=== PATIENT | female | born 1995 | race Caucasian/White ===

== ENCOUNTER 2016-03-19 14:13 | Emergency (ER) | payer OTHER ==
[2016-03-19 16:13] VITALS: BP 135/68
--- NOTE | 2016-03-19 16:51 | UC ---
Respiratory Complaint HPI - HPI Summary HPI Summary: cough for a week. For past 2d, feels worse with terrible ST, fever, body aches. No flu shot. Still with hacking cough, productive of yellowish phlegm - History of Current Complaint Chief Complaint: UCRespiratory Stated Complaint: FEVER,THROAT Time Seen by Provider: 03/19/16 16:42 Hx Obtained From: Patient Hx Last Menstrual Period: 03/18/16 Onset/Duration: Gradual Onset, Lasting Weeks - 1 Timing: Constant Severity Initially: Mild Severity Currently: Moderate Character: Sputum Description: - yellow Aggravating Factors: Recumbent Position Alleviating Factors: Nothing Associated Signs And Symptoms: Positive: Dyspnea, Fever, Chills, URI, Nasal Congestion, Hoarseness. Negative: Hemoptysis - Risk Factors Pulmonary Embolism Risk Factors: Negative Cardiac Risk Factors: Negative Pseudomonas Risk Factors: Negative Tuberculosis Risk Factors: Negative - Allergies/Home Medications Allergies/Adverse Reactions: Allergies Allergy/AdvReac Type Severity Reaction Status Date / Time Penicillins Allergy Intermediate Hives Verified 03/19/16 16:13 Home Medications: Home Medications Hydrocodone Polistirex-Chlorph [Tussionex Pennkinetic Ext 10-8 mg/5Ml] 2 teasp PO PRN 03/19/16 [History] PMH/Surg Hx/FS Hx/Imm Hx Endocrine History Of: Denies: Diabetes Cardiovascular History Of: Denies: Hypertension, Pacemaker/ICD Respiratory History Of: Reports: Asthma - "related to exercise" GI/ History Of: Denies: Renal Disease Neurological History Of: Reports: Migraine - gets GIBBS's w/ dizziness - had a head scan 2014 (normal per pt) Psychological History Of: Denies: Anxiety, Depression Other History Of: Negative For: Anticoagulant Therapy - Surgical History Surgical History: Yes Surgery Procedure, Year, and Place: tubes in ears - Family History Known Family History: Positive: Cardiac Disease, Diabetes - Social History Occupation: Student Lives: With Family Alcohol Use: Occasionally Substance Use Type: None Smoking Status (MU): Never Smoked Tobacco Review of Systems Constitutional: Fever, Chills, Fatigue Skin: Negative Eyes: Negative ENT: Sore Throat, Ear Ache, Nasal Discharge Respiratory: Cough Cardiovascular: Negative Gastrointestinal: Negative Genitourinary: Negative Motor: Negative Neurovascular: Negative Musculoskeletal: Myalgia Neurological: Headache Psychological: Negative All Other Systems Reviewed And Are Negative: Yes Physical Exam Triage Information Reviewed: Yes Appearance: Well-Appearing, No Pain Distress, Well-Nourished Vital Signs: Initial Vital Signs Temp 99.6 F 03/19/16 16:05 Pulse 91 03/19/16 16:05 Resp 16 03/19/16 16:05 BP 135/68 03/19/16 16:05 Pulse Ox 100 03/19/16 16:05 Vital Signs Reviewed: Yes Eye Exam: Normal ENT: Positive: Normal ENT inspection, Pharyngeal erythema, Nasal congestion, Nasal drainage, TM bulging, TM dull, TM red - left side, Muffled/hoarse voice - hoarse. Negative: Tonsillar swelling, Tonsillar exudate, Trismus Neck exam: Normal Neck: Positive: Supple Respiratory Exam: Normal Respiratory: Positive: Lungs clear, Normal breath sounds, No respiratory distress, No accessory muscle use Cardiovascular Exam: Normal Musculoskeletal Exam: Normal Neurological Exam: Normal Psychological Exam: Normal Skin Exam: Normal UC Diagnostic Evaluation - Laboratory O2 Sat by Pulse Oximetry: 100 Diagnostic Studies Comment: Strep neg Respiratory Course/Dx - Differential Dx/Diagnosis Differential Diagnosis/HQI/PQRI: Bronchitis, Lower Resp Infection, Sinusitis Provider Diagnoses: left OM; URI Discharge - Discharge Plan Condition: Stable Disposition: HOME Prescriptions: Azithromycin TAB* [Zithromax TAB (Z-CHRISTAL) 250 mg #6 tabs] 2 tab PO .TODAY, THEN 1 DAILY #1 christal Benzonatate CAP* [Tessalon CAP*] 100 mg PO TID PRN #30 cap PRN Reason: Cough Patient Education Materials: Otitis Media (ED), Upper Respiratory Infection (ED ) Referrals: Kailyn Khoury MD [Primary Care Provider] -
== END 2016-03-19 17:25 | disposition home or self-care (01) ==
LOC: UCCORT 14:13
DX: H66.92 Otitis media, unspecified, left ear (principal); J06.9 Acute upper respiratory infection, unspecified; Z88.0 Allergy status to penicillin
CPT/HCPCS: 87651; 99212; G0463

== ENCOUNTER 2017-01-08 19:56 | Emergency (ER) | payer OTHER ==
[2017-01-08 20:07] VITALS: BP 129/73
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
== END 2017-01-08 20:45 | disposition home or self-care (01) ==
LOC: UCEAST 19:56
DX: R14.0 Abdominal distension (gaseous) (principal); R68.84 Jaw pain; R20.2 Paresthesia of skin; R11.0 Nausea
CPT/HCPCS: 99212; G0463

== ENCOUNTER 2017-01-08 21:07 | Emergency (ER) | payer OTHER ==
--- NOTE | 2017-01-09 01:21 | ED ---
August Prince Alfonso, scribed for Ronal More MD on 01/09/17 at 0026 . Abdominal Pain/Female - HPI Summary HPI Summary: This patient is a 21 year old F presenting [place] [facility] [place] [facility] accompanied by step mother and sister with a chief complaint of abdominal bloating since 5 days ago. The patient rates the pain 4/10 in severity. Symptoms aggravated by nothing. Symptoms alleviated by nothing. Patient reports fatigue, diaphoresis, insomnia, bilateral LE shooting pains (worse on right), chest pressure, and SOB. Patient denies N/V, and urinary symptoms. She is s/p a recent right-sided dental procedure. She had a BM today. She denies recent sick contacts. - History of Current Complaint Chief Complaint: EDGeneral Stated Complaint: TENDER/BLOATED SENT FROM Hx Obtained From: Patient Hx Last Menstrual Period: 12/28/16 Onset/Duration: Gradual Onset, Lasting Days - 5, Still Present Timing: Constant Severity Currently: Moderate Pain Intensity: 4 Pain Scale Used: 0-10 Numeric Character: Other: - bloating Aggravating Factor(s): Nothing Alleviating Factor(s): Nothing Associated Signs and Symptoms: Positive: Other: - fatigue, diaphoresis, insomnia , bilateral LE shooting pains (worse on right), chest pressure, and SOB. Patient denies N/V, urinary symptoms Allergies/Adverse Reactions: Allergies Allergy/AdvReac Type Severity Reaction Status Date / Time Penicillins Allergy Intermediate Hives Verified 03/19/16 16:13 PMH/Surg Hx/FS Hx/Imm Hx Endocrine/Hematology History: Denies: Hx Anticoagulant Therapy, Hx Blood Disorders, Hx Diabetes Cardiovascular History: Denies: Hx Hypertension, Hx Pacemaker/ICD Respiratory History: Reports: Hx Asthma - "related to exercise" GI History: Reports: Hx Gastroesophageal Reflux Disease History: Denies: Hx Renal Disease Musculoskeletal History: Denies: Hx Rheumatoid Arthritis, Hx Osteoporosis Sensory History: Denies: Hx Contacts or Glasses, Hx Hearing Aid Opthamlomology History: Denies: Hx Contacts or Glasses EENT History: Denies: Hx Deafness Neurological History: Reports: Hx Migraine - gets GIBBS's w/ dizziness - had a head scan 2014 (normal per pt) Psychiatric History: Denies: Hx Anxiety, Hx Depression, Hx Panic Disorder - Surgical History Surgery Procedure, Year, and Place: wisdom teeth extraction. tubes in ears - Immunization History Immunizations Up to Date: Yes Infectious Disease History: No Infectious Disease History: Denies: Traveled Outside the [place] in Last 30 Days - Family History Known Family History: Positive: Cardiac Disease, Diabetes - Social History Alcohol Use: Occasionally Hx Substance Use: No Substance Use Type: Reports: None Hx Tobacco Use: No Smoking Status (MU): Never Smoked Tobacco Review of Systems Positive: Fatigue, Skin Diaphoresis Positive: Chest Pain Positive: Shortness Of Breath Positive: Other - Abd bloating. Negative: Vomiting, Nausea Positive: no symptoms reported Neurological: Other - Insomnia, bilateral LE shooting pains (worse on right) All Other Systems Reviewed And Are Negative: Yes Physical Exam - Summary Physical Exam Summary: Appearance: Well-appearing, Well-nourished Skin: Warm Eyes: Normal ENT: Post-operative right lower gum line surgical changes. No abscess. No bleeding. Minimal tenderness to palpation. Neck: Supple, nontender Respiratory: Clear to auscultation Cardiovascular: Normal Abdomen: Soft, nontender Bowel: Present Musculoskeletal: Strength/ROM Intact Neurological: Normal, A&Ox3 Psychiatric: Normal Triage Information Reviewed: Yes Vital Signs On Initial Exam: Initial Vitals Temp Pulse Resp BP Pulse Ox 97.3 F 105 16 127/68 98 01/08/17 21:21 01/08/17 21:21 01/08/17 21:21 01/08/17 21:21 01/08/17 21:21 Vital Signs Reviewed: Yes - Ana Coma Scale Coma Scale Total: 15 Diagnostics - Vital Signs Vital Signs Temp Pulse Resp BP Pulse Ox 01/08/17 23:47 77 98 01/08/17 21:21 97.3 F 105 16 127/68 98 - Laboratory Lab Statement: Any lab studies that have been ordered have been reviewed, and results considered in the medical decision making process. Abdominal Pain Fem Course/Dx - Course Course Of Treatment: pt elects to leave AMA, does not want to wait for CT scan, I instructed patient about dangers of leaving against AMA such as seriuos intraabdominal pathology including appendicitis, and risk of permanent disability and morbidity, but patient demonstrates understnading and elects to leave AMA nonetheless. - Diagnoses Provider Diagnoses: Abdominal pain Discharge - Discharge Plan Condition: Stable Disposition: AGAINST MEDICAL ADVICE Patient Education Materials: Acute Abdominal Pain (ED) Referrals: Kailyn Khoury MD [Primary Care Provider] - Additional Instructions: 1. PLEASE MAKE AN APPOINTMENT FIRST THING IN THE MORNING TO BE SEEN BY YOUR PRIMARY CARE DOCTOR WITHIN 2-3 DAYS 2. PLEASE RETURN IMMEDIATELY TO THE ER IF YOU HAVE ANY WORSENING OR CONCERNING SYMPTOMS The documentation as recorded by the August lovelace Alfonso accurately reflects the service I personally performed and the decisions made by me, oRnal More MD.
[2017-01-09 01:22] LABS: Hematocrit 40 % (35-47); Hemoglobin 13.4 g/dl (12.0-16.0); Mean Corpuscular HGB Conc 34 g/dl (31-36); Mean Corpuscular Hemoglobin 31 pg (27-31); Mean Corpuscular Volume 91 fL (80-97); Mean Platelet Volume 8 um3 (7.4-10.4); Red Blood Count 4.38 10^6/ul (4.0-5.4); Red Cell Distribution Width 13 % (10.5-15); White Blood Count 19.5 10^3/ul (3.5-10.8)
[2017-01-09 01:23] VITALS: BP 111/63
[2017-01-09 01:26] LABS: Add Diff/Slide Review? Slide Review Added; Comments Flag Yes
[2017-01-09 01:36] LABS: ALT 17 U/L (7-52); AST 13 U/L (13-39); Albumin 3.7 g/dL (3.2-5.2); Alkaline Phosphatase 39 U/L (34-104); Anion Gap 5 mmol/L (2-11); BUN/Creatinine Ratio 38.2 (8-20); Blood Urea Nitrogen 26 mg/dL (6-24); C Reactive Protein < 1.00 mg/L (< 5.00); CO2 Carbon Dioxide 30 mmol/L (22-32); Calcium 8.6 mg/dL (8.6-10.3); Chloride 98 mmol/L (101-111); EGFR African American 137.9 (>60); EGFR Non-African American 107.2 (>60); Globulin 2.5 g/dL (2-4); Glucose 89 mg/dL (70-100); Lipase 79 U/L (11.0-82.0); Potassium 4.5 mmol/L (3.5-5.0); Sodium 133 mmol/L (133-145); Total Protein 6.2 g/dL (6.4-8.9)
== END 2017-01-09 01:25 | disposition left against medical advice (07) ==
LOC: ED 21:07
DX: R10.9 Unspecified abdominal pain (principal); R53.83 Other fatigue; G47.00 Insomnia, unspecified; R07.9 Chest pain, unspecified
CPT/HCPCS: 36415; 80053; 83690; 84702; 85025; 85730; 86140; 99283

== ENCOUNTER 2017-04-08 12:01 | Emergency (ER) | payer SELFPAY ==
[2017-04-08 14:27] VITALS: BP 129/75
[2017-04-08] MEDS ORDERED: Tetan/Diph/Pertus SYR(Tdap)* 0.5 ML SYR(BOOSTRIX) use SYR IM ONE (14:48)
--- NOTE | 2017-04-08 14:55 | UC ---
Skin Complaint HPI - HPI Summary HPI Summary: 21 yo WF p/w right heel puncture wound at 11:20 AM while doing work at school. Last Tdap was 2006 and is here for her tdap shot. Foot is not swollen , but painful to touch - History of Current Complaint Chief Complaint: UCLowerExtremity Time Seen by Provider: 04/08/17 14:35 Stated Complaint: PUNCTURE WOUND Hx Obtained From: Patient Hx Last Menstrual Period: 03/21/17 Onset/Duration: Sudden Onset Skin Exposure Onset/Duration: Hours Ago Onset Severity: Mild Pain Intensity: 2 - Allergy/Home Medications Allergies/Adverse Reactions: Allergies Allergy/AdvReac Type Severity Reaction Status Date / Time Penicillins Allergy Hives Verified 04/08/17 12:19 Home Medications: Home Medications Bcp 1 tab PO DAILY 04/08/17 [History] Review of Systems Constitutional: Negative Skin: Other - SEE HPI Eyes: Negative ENT: Negative Respiratory: Negative Cardiovascular: Negative Gastrointestinal: Negative Genitourinary: Negative Motor: Negative Neurovascular: Negative Musculoskeletal: Negative Neurological: Negative Psychological: Negative Is Patient Immunocompromised?: No All Other Systems Reviewed And Are Negative: Yes PMH/Surg Hx/FS Hx/Imm Hx Other History Of: Negative For: Anticoagulant Therapy - Surgical History Surgical History: Yes Surgery Procedure, Year, and Place: wisdom teeth extraction. tubes in ears - Family History Known Family History: Positive: Cardiac Disease, Diabetes - Social History Alcohol Use: Occasionally Substance Use Type: None Smoking Status (MU): Never Smoked Tobacco Physical Exam Triage Information Reviewed: Yes Appearance: Well-Appearing Vital Signs: Initial Vital Signs Temp 36.6 C 04/08/17 12:19 Pulse 78 04/08/17 12:19 Resp 16 04/08/17 12:19 BP 106/65 04/08/17 12:19 Pulse Ox 100 04/08/17 12:19 Eye Exam: Normal ENT Exam: Normal Dental Exam: Normal Neck exam: Normal Neck: Positive: 1 Respiratory Exam: Normal Cardiovascular Exam: Normal Abdominal Exam: Normal Musculoskeletal Exam: Normal Neurological Exam: Normal Psychological Exam: Normal Skin: Positive: Other - small puncture wound seen on right mid heel plantar surface near the arch, no swelling, warmth or d/c Course/Dx - Course Course Of Treatment: wound cleaned, Tdap administered, monitor for wound infection, no need for abx at this time - Diagnoses Provider Diagnoses: Puncture wound. Tdap booster Discharge - Discharge Plan Condition: Stable Disposition: HOME Patient Education Materials: Puncture Wound (ED) Referrals: Kailyn Khoury MD [Primary Care Provider] - Additional Instructions: activity as tolerated
== END 2017-04-08 15:15 | disposition home or self-care (01) ==
LOC: UCEAST 12:01
DX: S91.311A Laceration without foreign body, right foot, initial encounter (principal); X58.XXXA Exposure to other specified factors, initial encounter; Y92.219 Unspecified school as the place of occurrence of the external cause
CPT/HCPCS: 90715; 96372; 99211; G0463

== ENCOUNTER 2018-06-25 14:48 | Emergency (ER) | payer OTHER ==
--- OUTSIDE RECORDS SUMMARY | 2018-06-25 15:00 | XMS REPORT | Continuity of Care Document ---
:1995 External Reference #:[id number] Author Name Jadiel Iniguez M.D. Address [address] [facility] [address] [place] [address] Care Team Providers Name Role Phone Jadiel Iniguez MD Care Team Information Prop Making Supervisor Unavailable Jadiel Iniguez MD Primary Care Physician Unavailable Payers Date Identification Numbers Payment Provider Subscriber Effective: 2010 Policy Number: [id number] [facility] Nelida Aminata PayID: [id number] [address] [place] [address] Effective: 2004 Policy Number: [id number] [facility] Nelida Mendosa Expires: 2010 Group Number: [id number] [address] PayID: [id number] [place] [address] Effective: 2003 Policy Number: Medicaid/[facility] Systems Vidal Ruby Aminata [id number] Expires: 2004 PayID: [id number] [address] [place] [address] Expires: 2002 Policy Number: [id number] CHESTER Coates PayID: [id number] [address] [address] [place] [address] Effective: 2002 Policy Number: [id number] [employer] - Ruben Coates Expires: 2003 Group Name: [employer]en [employer] [id number] [facility] PayID: [id number] [place] [address] Effective: 2003 Policy Number: [id number] [employer] Vidal Coates Expires: 2003 Group Name: [employer] [address] [address] Advance Directives Description No Information Available Problems Active Problems Provider Date Oral contraceptive prescribed Chalino Mora CIRCULATION MANAGER Onset: 05/10/2011 Contraception care education Chalino Mora CIRCULATION MANAGER Onset: 05/10/2011 Herpes zoster without complication Jadiel Iniguez M.D. Onset: 05/10/2011 Allergic rhinitis Jadiel Iniguez M.D. Onset: 05/10/2011 Inactive Problems Disorder of menstruation Jadiel Iniguez M.D. Onset: 05/10/2011 Inactive: 12/14/2013 Family History Date Family Member(s) Observation Comments Father Healthy Father 37 Mother Healthy Mother 36 Children None Siblings 4 Social History Type Date Description Comments Sex Unknown Marital Status Legal Status: Never ETOH Use Rarely consumes alcohol Tobacco Use Start: Unknown Patient has never smoked Allergies, Adverse Reactions, Alerts Active Allergies Reaction Severity Comments Date Penicillin 06/15/2011 Medications Active Medications SIG Qnty Indications Ordering Provider Date Celexa 1 by mouth 90tabs F33.9 Jadiel Iniguez, 04/10/2018 20mg Tablets every day M.D. F41.9 Crestor take one tablet by 90tabs E78.2 Jadiel Iniguez, 03/15/2018 10mg Tablets mouth at bedtime M.D. Vitamin D3 1 by mouth every 90caps E55.9 Jadiel Iniguez, 03/15/2018 1000Unit day M.D. Capsules Claritin 1 by mouth every 30tabs J30.9 Jadiel Iniguez, 03/01/2018 10mg Tablets day M.D. Singulair 1 tab by mouth at 30tabs J45.909 Jadiel Iniguez, 03/01/2018 10mg Tablets bedtime M.D. Omeprazole 1 by mouth every 30caps K21.9 Jadiel Iniguez, 03/01/2018 20mg Capsules day M.D. DR Dang HFA 2 puffs qid prn 2Mdi J45.909 [facility] frannelson ReneJennifer, 11/10/2012 108(90Base) M.Graeme mcg/Act Aerosol Take 1 Tablet By Unknown Mouth Every Day 1.5-30mg-mcg Tablets History Medications Azithromycin 1 tab by mouth 10tabs J18.0 [facility] 03/01/2018 - 500mg every day x 10 MRadha Rodriguez 03/14/2018 Tablets days Levonorgestrel And Take 1 tablet by 91tabs v25.9 [facility] 12/12/2013 - Ethinyl Estradiol mouth daily at the [facility] 03/14/2018 same day 0.1-0.02&0.01mg Tablets Valacyclovir HCL Take 1 tablet by 14tabs 054.79 [facility] 09/13/2013 - 1gm mouth two times a [facility] 09/21/2013 Tablets day for 7 days Metronidazole Take 1 tablet by 14tabs 616.10 [facility] 09/13/2013 - 500mg mouth twice a day [facility] 09/21/2013 Tablets for 7 days. Take medication with food Cheratussin ac tsp 1 q 4 hrs prn 118ml 461.9 [facility] 04/11/2013 - Radha Darby 04/18/2013 100-10mg/5ML Syrup Mucinex Maximum 1 po bid 30tabs 461.9 [facility] 04/11/2013 - Strength Radha Darby 04/16/2013 1200mg Tablets ER 12HR Prednisone 2 tab by mouth 20tabs 461.9 [facility] 04/11/2013 - 20mg Tablets daily 4 days, 30 MRadha Rodriguez 04/25/2013 MGx3d,77ICg6l,10MG x7d Levofloxacin 1 po qd 10tabs 461.9 [facility] 04/11/2013 - 500mg Radha Darby 04/21/2013 Tablets Azithromycin 2 po today then 1 1Pack 461.9 [facility] 11/10/2012 - 250mg po next 4 days Radha Darby 11/15/2012 Tablets Mucinex Maximum 1 po bid 30tabs 461.9 Hira, chai 11/10/2012 - Strength Radha Darby 11/13/2012 1200mg Tablets ER 12HR Calcium 600 With Hira, [facility] 11/03/2012 - Vitamin D Radha Darby 11/03/2012 [id number]-[id number] Chewtabs Vitamin D 1 PO Qday Hira, chai 11/03/2012 - 2000Unit Radha Darby 05/22/2018 Capsules Mupirocin apply to affected 22gtube 692.9 [facility], chai 08/04/2012 - 2% Ointment areas bid Radha Darby 05/22/2013 Azithromycin take two tablets 6tabs 461.8 [facility] 07/12/2012 - 250mg by mouth as one Radha Darby 07/17/2012 Tablets dose on the first day then take one daily thereafter x 4 days Cheratussin ac tsp 1 q 4 hrs prn 100cc 786.2 [facility], chai 07/12/2012 - Radha Darby 07/17/2012 100-10mg/5ML Syrup Cipro 1 twice a day 20tabs Hira, chai 03/16/2012 - 500mg Tablets Radha Darby 03/29/2012 Cryselle-28 one po qd 1pack V25.01 [facility] 03/14/2012 - 0.3-30mg-mcg Radha Darby 02/21/2013 Tablets Cipro 1 twice a day 20tabs 789.07 H[facility], [facility] 02/29/2012 - 500mg Tablets Radha Darby 03/10/2012 Strattera 300.00 Hira, chai 06/15/2011 - 40mg Capsules Radha Darby 03/14/2012 Medications Administered in Office Medication SIG Qnty Indications Ordering Provider Date Jadiel Ford M.D. 11/19/2004 Injection Immunizations CPT Code Status Date Vaccine Lot # 24483 Given 08/14/2009 Meningococcal Conjugate Vaccine 06267 Given 08/14/2009 Prevnar 09215 Given 01/09/2009 Flu Vaccine 82484 Given 10/20/2006 TDaP 85151 Given 11/10/2004 Varicella Vaccine 71946 Given 09/17/1998 MMR 32149 Given 09/06/1998 IPV 56691 Given 07/07/1998 DTaP [facility] [id number] ML 0.50 97157 Given 04/28/1995 MMR 06877 Given 07/07/1994 Hep B To Age 16 50526 Given 01/07/1994 IPV 06490 Given 01/07/1994 DTaP [facility] [id number] ML 0.50 79703 Given 01/07/1994 Hemophilus Influenza B Vaccine 49823 Given 1993 IPV 66102 Given 1993 DTaP ND [id number] ML 0.50 19307 Given 1993 Hemophilus Influenza B Vaccine 44748 Given 1993 Hep B To Age 16 47960 Given 1993 IPV 76056 Given 1993 DTaP [facility] [id number] ML 0.50 83107 Given 1993 Hemophilus Influenza B Vaccine 54866 Given 1993 Hep B To Age 16 49178 Refused 12/12/2013 Flu Vaccine Vital Signs Date Vital Result Comment 06/15/2018 9:38am BP Systolic 116 mmHg BP Diastolic 64 mmHg Height 64 inches 5'4" Weight 197.00 lb BMI (Body Mass Index) 33.8 kg/m2 Heart Rate 87 /min Respiratory Rate 16 /min 04/24/2018 3:36pm BP Systolic 126 mmHg BP Diastolic 88 mmHg Height 64 inches 5'4" Weight 196.00 lb BMI (Body Mass Index) 33.6 kg/m2 Heart Rate 73 /min Respiratory Rate 16 /min 04/10/2018 3:55pm BP Systolic 118 mmHg BP Diastolic 72 mmHg Height 64 inches 5'4" Weight 196.00 lb BMI (Body Mass Index) 33.6 kg/m2 Heart Rate 98 /min Respiratory Rate 18 /min 03/15/2018 4:14pm BP Systolic 124 mmHg BP Diastolic 72 mmHg Height 64 inches 5'4" Weight 196.00 lb BMI (Body Mass Index) 33.6 kg/m2 Heart Rate 86 /min Respiratory Rate 16 /min 03/01/2018 10:16am BP Systolic 118 mmHg BP Diastolic 68 mmHg Height 64 inches 5'4" Weight 196.00 lb BMI (Body Mass Index) 33.6 kg/m2 Heart Rate 103 /min Respiratory Rate 16 /min 12/12/2013 2:53pm BP Systolic 127 mmHg BP Diastolic 69 mmHg Height 64 inches 5'4" Weight 167.00 lb BMI (Body Mass Index) 28.7 kg/m2 Heart Rate 83 /min Respiratory Rate 18 /min 09/13/2013 4:40pm BP Systolic 111 mmHg BP Diastolic 73 mmHg Height 64 inches 5'4" Weight 163.00 lb BMI (Body Mass Index) 28.0 kg/m2 Heart Rate 60 /min Body Temperature 97.4 F Respiratory Rate 18 /min 07/03/2013 2:12pm BP Systolic 119 mmHg BP Diastolic 73 mmHg Height 64 inches 5'4" Weight 159.00 lb BMI (Body Mass Index) 27.3 kg/m2 Heart Rate 103 /min Respiratory Rate 18 /min 06/06/2013 3:06pm BP Systolic 123 mmHg BP Diastolic 79 mmHg Height 64 inches 5'4" Weight 159.00 lb BMI (Body Mass Index) 27.3 kg/m2 Heart Rate 112 /min Body Temperature 97.6 F Respiratory Rate 18 /min 04/11/2013 11:58am BP Systolic 138 mmHg BP Diastolic 85 mmHg Height 64 inches 5'4" Weight 159.00 lb BMI (Body Mass Index) 27.3 kg/m2 Heart Rate 125 /min Body Temperature 98.8 F Respiratory Rate 20 /min 11/10/2012 4:33pm BP Systolic 112 mmHg BP Diastolic 66 mmHg Height 64 inches 5'4" Weight 161.00 lb BMI (Body Mass Index) 27.6 kg/m2 Heart Rate 97 /min Body Temperature 97.0 F Respiratory Rate 18 /min 10/31/2012 2:27pm BP Systolic 102 mmHg BP Diastolic 60 mmHg Height 64 inches 5'4" Weight 160.00 lb BMI (Body Mass Index) 27.5 kg/m2 Heart Rate 101 /min Body Temperature 97.5 F Respiratory Rate 18 /min 08/04/2012 2:07pm BP Systolic 124 mmHg BP Diastolic 70 mmHg Height 64 inches 5'4" Weight 157.00 lb BMI (Body Mass Index) 26.9 kg/m2 Heart Rate 73 /min Respiratory Rate 18 /min 07/12/2012 2:14pm BP Systolic 112 mmHg BP Diastolic 62 mmHg Height 64 inches 5'4" Weight 154.00 lb BMI (Body Mass Index) 26.4 kg/m2 Heart Rate 104 /min Body Temperature 97.4 F Respiratory Rate 18 /min 03/14/2012 2:23pm BP Systolic 102 mmHg BP Diastolic 70 mmHg Height 64 inches 5'4" Weight 152.00 lb BMI (Body Mass Index) 26.1 kg/m2 Heart Rate 76 /min Body Temperature 97.4 F Respiratory Rate 12 /min 02/29/2012 11:47am BP Systolic 116 mmHg BP Diastolic 72 mmHg Height 64 inches 5'4" Weight 153.00 lb BMI (Body Mass Index) 26.3 kg/m2 Heart Rate 108 /min Body Temperature 97.1 F Respiratory Rate 16 /min 06/15/2011 3:05pm BP Systolic 112 mmHg BP Diastolic 72 mmHg Height 64 inches 5'4" Weight 140.00 lb BMI (Body Mass Index) 24.0 kg/m2 Heart Rate 71 /min Last Menstrual Period 0 Respiratory Rate 14 /min Results Test Date Facility Test Result H/L Range Note CBC With Diff 03/01/2018 [facility] WBC 8.9 10*3/uL (4.1-11.0) [address] [facility] (607)- - RBC 4.62 10*6/uL (4.00-5.40) HGB 13.8 g/dL (12.0-16.0) HCT 40.5 % (36.0-47.0) MCV 87.5 fL (80.0-95.0) MCH 29.9 pg (27.0-32.0) MCHC 34.2 g/dL (32.0-36.0) RDW 12.0 % (10.5-14.5) PLT 349 10*3/uL (150-450) MPV 8.3 fL (7.1-10.7) Neut % 67.1 % (35.0-75.0) Lymph % 21.8 % (16.0-52.0) [place] % 9.4 % High (0.0-8.0) Eos % 0.9 % (0.0-5.0) Baso % 0.8 % (0.0-4.0) Neut # 6.0 10*3/uL (1.8-7.7) Lymph # 1.9 10*3/uL (1.2-4.8) [place] # 0.8 10*3/uL (0.0-0.8) Eos # 0.1 10*3/uL (0.0-0.5) Baso # 0.1 10*3/uL (0.0-0.2) CMP 03/01/2018 [facility] Sodium 138 mmol/L (136-145) [facility] (003)- - Potassium 4.8 mmol/L (3.6-5.2) Chloride 102 mmol/L (100-108) Co2 27 mmol/L (22-31) Anion Gap 9 mmol/L (7-16) Urea Nitrogen 11 mg/dL (7-24) Creatinine 0.76 mg/dL (0.60-1.00) BUN/Creat Ratio 14.5 RATIO (10.0-20.0) Glucose 83 mg/dL (70-99) Calcium 8.9 mg/dL (8.4-10.2) Total Protein 7.3 g/dL (6.4-8.2) Albumin 3.7 g/dL (3.5-4.6) Globulin 3.6 g/dL (2.7-4.3) Alb/Glob Ratio 1.0 RATIO Alkaline Phosphatase 64 U/L (45-117) Bilirubin,Total 0.4 mg/dL (0.0-1.0) Ast (Sgot) 35 U/L (11-39) Alt (SGPT) 27 U/L (12-78) GFR >60 ml/min/1.73m2 (>59) GFR ( Amer) >60 ml/min/1.73m2 (>59) GFR Interpretation <SEE NOTE> 1 Lipid 03/01/2018 [facility] Cholesterol @ 267 mg/dL High (0-200) [address] [facility] [facility] (646)- - Triglyceride @ 179 mg/dL (30-200) HDL Cholesterol @ 52 mg/dL (>40) 2 Chol/HDL Ratio 5.1 RATIO 3 LDL Chol (Calc) 179 mg/dL High (<130) 4 Hemoglobin A1c 03/01/2018 [facility] Hemoglobin A1c @ 5.7 % (4.0-6.0) 5 [address] [facility] (954)- - Est Average Glucose 117 mg/dL Laboratory 03/01/2018 [facility] TSH,Ultrasensitive @ 1.130 (0.360- 4.170) test finding [address] [facility] mIU/L (607)- - 25 Hydroxy Vit D @ 22 ng/mL Low (31-100) 6 Affirm Vaginitis 09/13/2013 [facility] Trichomonas vaginalis Negative [ Negative] Panel Gardnerella vaginalis POSITIVE High [Negative] Lilliam species Negative [Negative] Chlamydia/GC 09/13/2013 [facility] Chlamydia/GC Jasen See Note 7 Amplification Throat Culture 06/06/2013 [facility] Throat Culture See Note 8 Complete Complete Laboratory test 10/31/2012 [facility] C-Reactive 0.81 mg/L 0.00-3.0 9 finding Protein,Cardiac 0 Sedimentation Rate 15 mm/hr 0-20 CBC W/Automated Diff 10/31/2012 [facility] White Blood Count 8.8 K/uL 3.1- 10.7 Red Blood Count 4.39 M/uL 3.90-5.40 Hemoglobin 13.4 gm/dL 11.6-15.8 Hematocrit 39.4 % 36.0-46.1 Mean Cell Volume 89.7 fl 80.9-99.0 Mean Corpuscular HGB 30.5 pg 25.9-32.7 Mean Corpuscular HGB Conc 34.0 g/dL 30.8-34.3 Platelet Count 302 K/uL 155-360 Red Cell Distri Width SD 38.5 fl 3-47 Red Cell Distri Width %CV 12.0 % 11.7-14.4 Mean Platelet Volume 10.9 fL 8.9-12.4 Neut% 69.1 % High 28.0-68.0 Lymph % 19.4 % 17.0-46.1 [place] % 8.7 % 4.3-13.2 Eo% 2.2 % 0.0-6.6 Bas% 0.6 % 0.0-1.1 Neut# 6.05 K/uL 1.0-7.0 Lymph # 1.70 K/uL 0.8-3.4 [place] # 0.76 K/uL High 0.0-0.6 Eos # 0.19 K/uL 0.0-0.5 Baso # 0.05 K/uL 0.0-0.1 Basic Metabolic Panel 10/31/2012 [facility] Glucose 80 mg/dL 76-115 BUN 14 mg/dL 5-23 Creatinine 1.0 mg/dL 0.5-1.4 Glom Filtration Rate, Estimate >60 mL/min >60 If >60 mL/min >60 10 BUN/Creat 14.0 ratio Sodium 140 mmol/L 136-145 Potassium 4.6 mmol/L 3.5-5.1 Chloride 103 mmol/L 98-107 Carbon Dioxide 29 mEq/L 18-29 Anion Gap 13 mEq/L 8-16 Calcium 9.3 mg/dL 8.5-10.1 Laboratory test 10/31/2012 [place] Thyroid Stim 1.28 uIU/mL 0.49-4.67 finding Hormone Vitamin D,25-Hydroxy 19.0 ng/mL Low 30.0-100.0 11 Laboratory test 10/31/2012 [facility] HCG Serum, Qualitative NEGATIVE finding Liver Function Tests 10/31/2012 [facility] Total Protein 7.6 g/dL 6.3-8.0 Albumin 4.2 g/dL 3.5-5.0 Globulin 3.4 g/dL 1.9-4.3 Alb/Glob 1.2 ratio Bilirubin,Total 0.2 mg/dL 0.2-1.2 Bilirubin,Direct < 0.1 mg/dL Low 0.1-0.4 Bilirubin,Indirect 0.1 mg/dL 0.0-0.9 Sgot/Ast 16 U/L 16-40 SGPT/Alt 20 U/L Low 30-65 Alkaline Phosphatase 90 U/L 50-136 LDL Cholesterol Profile 10/31/2012 [facility] Cholesterol 175 mg/dL 120- 200 Triglycerides 176 mg/dL 16-231 HDL Cholesterol 50 mg/dL 29-83 LDL-Cholesterol 90 mg/dL 62-185 Urine Culture And 10/07/2012 [facility] Urine Culture (SEE NOTE) 12 Sensitivities Dna Probe N. Gono & C. 08/04/2012 [facility] Dna Probe N. Gono See Note 13 Trach. + C. Trach. Dna Probe For Chlamydia Trac. See Note 14 Dna Probe For N. Gonorrhoeae See Note 15 Laboratory test finding 08/04/2012 [facility] ThinPrep Pap: See Note 16 Cervix/Endocx Chlamydia & Gonorrhea 03/11/2012 [facility] Chlamydia Trachomatis, See Note 17 PCR Jasen Neisseria Gonorrhoeae, Jasen See Note 18 Urine Screen 03/11/2012 [facility] Urine Color YELLOW Yellow Urine Clarity CLEAR Clear Urine Glucose - Dipstick NEGATIVE mg/dL Negative Urine Bilirubin - Dipstick NEGATIVE Negative Urine Ketone NEGATIVE mg/dL Negative Urine Specific [place] 1.025 1.010-1.030 Urine Blood NEGATIVE Negative Urine PH 6.0 Low 6.5-7.5 Urine Protein - Dipstick NEGATIVE mg/dL Negative Urine Urobilinogen - Dipstick 0.2 E.U./dL 0.2-1.0 Urine Nitrite - Dipstick NEGATIVE Negative Urine Leuk Esterase NEGATIVE Negative Laboratory test 03/11/2012 [facility] Urine HCG NEGATIVE Negative 19 finding (Qualitative) CBS W/Automated 03/11/2012 [place] White Blood Count 7.5 K/uL 3.1-10.7 Diff Red Blood Count 3.84 M/uL Low 3.90-5.40 Hemoglobin 11.8 gm/dL 11.6-15.8 Hematocrit 34.4 % Low 36.0-46.1 Mean Cell Volume 89.6 fl 80.9-99.0 Mean Corpuscular HGB 30.7 pg 25.9-32.7 Mean Corpuscular HGB Conc 34.3 g/dL 30.8-34.3 Platelet Count 392 K/uL High 155-360 Red Cell Distri Width SD 35.5 fl 3-47 Red Cell Distri Width %CV 11.2 % Low 11.7-14.4 Mean Platelet Volume 9.9 fL 8.9-12.4 Neut% 62.0 % 28.0-68.0 Lymph % 17.8 % 17.0-46.1 [place] % 10.5 % 4.3-13.2 Eo% 8.9 % High 0.0-6.6 Bas% 0.8 % 0.0-1.1 Neut# 4.67 K/uL 1.0-7.0 Lymph # 1.34 K/uL 0.8-3.4 [place] # 0.79 K/uL High 0.0-0.6 Eos # 0.67 K/uL High 0.0-0.5 Baso # 0.06 K/uL 0.0-0.1 Laboratory test finding 03/11/2012 [facility] Lipase 147 U/L 28-380 Comprehensive Metabolic Panel 03/11/2012 [facility] Glucose 128 mg/dL High 76-115 BUN 13 mg/dL 5-23 Creatinine 1.0 mg/dL 0.5-1.4 Glom Filtration Rate, Estimate >60 mL/min >60 If >60 mL/min >60 20 BUN/Creat 13.0 ratio Sodium 139 mmol/L 136-145 Potassium 4.1 mmol/L 3.5-5.1 Chloride 103 mmol/L 98-107 Carbon Dioxide 28 mEq/L 18-29 Anion Gap 12 mEq/L 8-16 Calcium 9.6 mg/dL 8.5-10.1 Total Protein 7.9 g/dL 6.3-8.0 Albumin 3.6 g/dL 3.5-5.0 Globulin 4.3 g/dL 1.9-4.3 Alb/Glob 0.8 ratio Bilirubin,Total 0.3 mg/dL 0.2-1.2 Sgot/Ast 24 U/L 16-40 SGPT/Alt 20 U/L Low 30-65 Alkaline Phosphatase 71 U/L 50-136 Laboratory test finding 02/29/2012 [place] HCG, Quant < 1.0 mIU/mL 21 Basic Metabolic Panel 02/29/2012 [facility] Glucose 79 mg/dL 76-115 BUN 14 mg/dL 5-23 Creatinine 0.7 mg/dL 0.5-1.4 Glom Filtration Rate, Estimate >60 mL/min >60 If >60 mL/min >60 22 BUN/Creat 20.0 ratio Sodium 139 mmol/L 136-145 Potassium 4.9 mmol/L 3.5-5.1 Chloride 105 mmol/L 98-107 Carbon Dioxide 28 mEq/L 18-29 Anion Gap 11 mEq/L 8-16 Calcium 9.6 mg/dL 8.5-10.1 CBC W/Automated Diff 02/29/2012 [place] White Blood Count 12.0 K/uL High 3.1-10.7 Red Blood Count 4.47 M/uL 3.90-5.40 Hemoglobin 13.6 gm/dL 11.6-15.8 Hematocrit 41.0 % 36.0-46.1 Mean Cell Volume 91.7 fl 80.9-99.0 Mean Corpuscular HGB 30.4 pg 25.9-32.7 Mean Corpuscular HGB Conc 33.2 g/dL 30.8-34.3 Platelet Count 357 K/uL 155-360 Red Cell Distri Width SD 39.5 fl 3-47 Red Cell Distri Width %CV 12.0 % 11.7-14.4 Mean Platelet Volume 11.1 fL 8.9-12.4 Neut% 74.3 % High 28.0-68.0 Lymph % 13.2 % Low 17.0-46.1 [place] % 7.5 % 4.3-13.2 Eo% 4.7 % 0.0-6.6 Bas% 0.3 % 0.0-1.1 Neut# 8.92 K/uL High 1.0-7.0 Lymph # 1.58 K/uL 0.8-3.4 [place] # 0.90 K/uL High 0.0-0.6 Eos # 0.56 K/uL High 0.0-0.5 Baso # 0.03 K/uL 0.0-0.1 1 NORMAL KIDNEY FUNCTION OR MILD DISEASE - GFR >OR=60 CHRONIC KIDNEY DISEASE - GFR 15 - 59 RENAL FAILURE - GFR <15 Est. GFR calculation based on the MDRD study equation, which assumes a steady state for creatinine. Est. GFR should not be used for medication dosing. 2 PER NCEP ATP III GUIDELINES: RESULTS LOWER THAN 40 MG/DL ARE SUGGESTIVE OF INCREASED RISK FOR CORONARY ARTERY DISEASE. RESULTS > OR=TO 60 MG/DL ARE CONSIDERED A NEGATIVE RISK FACTOR. 3 INTERPRETATION OF CHOL-HDL RATIO CHD RISK FEMALE MALE VERY HIGH >8.3 >14.3 HIGH 5.6- 8.3 6.7- 14.3 AVERAGE 3.7- 5.6 4.0- 6.7 BELOW AVERAGE 2.5- 3.7 2.7- 4.0 PROTECTED <2.5 <2.7 4 PER NCEP ATP III GUIDELINES: OPTIMAL < 100 NEAR OPTIMAL 100 - 129 BORDERLINE HIGH 130 - 159 HIGH 160 - 189 VERY HIGH > 189 5 Performed using Fisoc immunoassay. Care must be taken when interpreting HbA1c results in patients with a hemoglobin variant or decreased erythrocyte lifespan. Values 5.7 - 6.4% suggest prediabetes. Values >=6.5% are diagnostic for diabetes. REFERENCE: DIABETES CARE 2018: 41(S13-S27). 6 A REVIEW OF THE LITERATURE SUGGESTS THE FOLLOWING RANGES FOR THE CLASSIFICATION OF 25-OH VITAMIN D STATUS: VITAMIN D STATUS 25-OH VITAMIN D DEFICIENCY <20 NG/ML INSUFFICIENCY 20-30 NG/ML SUFFICIENCY 31 - 100 NG/ML TOXICITY > 100 NG/ML A PEDIATRIC REFERENCE RANGE HAS NOT BEEN ESTABLISHED USING THIS METHOD. 7 Test not performed Test Not Performed. The APTIMA(R) Swab Transport received was submitted with a cleaning swab (white shaft). The correct swab is the blue or pink shaft collection swab. See collection instructions provided with the transport device. 8 NORMAL THROAT SUSAN 9 Relative Risk for Future Cardiovascular Event Low <1.00 Average 1.00 - 3.00 High >3.00 10 Note: Persistent reduction for 3 months or more in an eGFR <60 mL/min/1.73 m2 defines CKD. Patients with eGFR values >/=60 mL/min/1.73 m2 may also have CKD if evidence of persistent proteinuria is present. The original MDRD equation for estimated GFR is not valid for patients less than 18 years of age. Additional information may be found at www.kdoqi.org. 11 Vitamin D deficiency has been defined by the [place] of [employer] and an Endocrine Society practice guideline as a level of serum 25-OH vitamin D less than 20 ng/mL (1,2). The Endocrine Society went on to further define vitamin D insufficiency as a level between 21 and 29 ng/mL (2). 1. IOM ([place] of [employer]). 2010. Dietary reference intakes for calcium and D. [place]: The National Academies Press. 2. Lolis MF, Elvis NC, Jeffy GIBBS, et al. Evaluation, treatment, and prevention of vitamin D deficiency: an Endocrine Society clinical practice guideline. JCEM. 2010; 96(7):1911-30. Performed at: RN - [facility] [address] [id number] Manager Bank: Tiffanie Link MD, Phone: [phone] 12 RUN DATE: 10/10/12 [facility] LAB LIVE PAGE 1 RUN TIME: [id number] [place] [id number] Specimen Inquiry Name: MAXIMILIAN COATES Rene : [address]: Anel Perez MD Acct: [id number] Unit: [id number] AGE: 17 Location: [facility] Re10[facility]07[facility]12 SEX: F Status: DEP ER SPEC: [id number] ROSI: 10/07/12-[address] [facility] [address]: Anel Perez MD REQ: [id number] RECD: 10/08/12-1229 STATUS: COMP CHARAN DR: Jadiel Iniguez MD _ SOURCE: URINE SPDESC: ORDERED: Urine Culture Procedure Result Verified Site Urine Culture Final 10/10/12- 0759 ML Organism 1 ESCHERICHIA COLI [place] Count >100,000 (Many) CFU/ML 1. ESCHERICHIA COLI M.I.C. RX --------- ------ Ampicillin 4 S Cefazolin <=4 S Cefepime <=1 S Ceftriaxone <=1 S Ciprofloxacin <=0.25 S Gentamicin <=1 S Imipenem <=0.25 S Levofloxacin <=0.12 S Meropenem <=0.25 S Nitrofurantoin <=16 S Tetracycline <=1 S Pipercillin/Tazobactam <=4 S Trimethoprim/Sulfamethoxazole <=20 S Amoxicillin/Clavulanic Acid <=2 S Aztreonam <=1 S Contact the Microbiology Department for any additional antibiotic reporting. END OF REPORT * ML=Testing performed at Main Lab DEPARTMENT OF PATHOLOGY, [address] [place] [address] Rafael Rock M.D. Director [facility] Permit #[id number] 13 TESTING PERFORMED WEEKLY 14 NEGATIVE FOR CHLAMYDIA TRACHOMATIS BY DNA HYBRIDIZATION ASSAY. THIS TEST IS APPROVED FOR OCULAR AND UROGENITAL SITES ONLY. 15 NEGATIVE FOR NEISSERIA GONORRHOEAE BY DNA HYBRIDIZATION ASSAY. THIS METHOD IS APPROVED FOR UROGENITAL SITES ONLY. 16 CYTOLOGY SCREENER - CLASSIFIER TENDER @ 04/03 Screened by: CAROLYNE Strong(ASCP) PAP: FINAL REPORT SPECIMEN ADEQUACY: SPECIMEN SATISFACTORY FOR INTERPRETATION <4ml OF SAMPLE REMAINS IN THE THINPREP VIAL PLEASE INDICATE PATIENT'S LMP ON FUTURE REQUESTS INTERPRETATION: NEGATIVE FOR INTRAEPITHELIAL LESION OR MALIGNANCY BENIGN REACTIVE SQUAMOUS CELL CHANGES COMMENT: THINPREP PREPARED PAP SLIDE # Prepared in the Cytology laboratory from the ThinPrep sample is 1 ThinPrep smear. PAP ACCESSI QUESTIONNAIRE 03/02 PERTINENT CLINICAL HISTORY FOR PAP (CLASSIFIER TENDER) CYTOLOGY (Check all that apply): ? N Post ? N Menopause? N LMP date: Last Pap: at [facility]? Y Abnormal Pap? If Yes, date: Post Hysterectomy? Is cervix present? Y If patient had related surgical procedure: Related Therapy: IUD: Oral Contraception: Y Depo: Nova Ring: Hormone Replacement: Significant Clinical History: V72.31 DISCLAIMER: The Pap smear is a screening test and not a diagnostic procedure. False negative and false positive results can and do occur for a number of reasons. Regular screening provides an aid in detecting treatable cervical abnormalities, but should not be used as the only means for detecting cervical dysplasia and carcinoma. CHIQUITA Shane MD 08/08/12 1602 17 Organism 1 ! POS FOR CHLAMYDIA TRACH BY JASEN 18 NEGATIVE FOR NEISSERIA GONORRHEA BY JASEN Please note: Acceptable specimens for this test are male urethral swab, endocervical swab and liquid based pap specimens, vaginal swabs in APTIMA transports and first void urine. See online Directory of Services for test number for rectal and pharyngeal specimens. Performed at: RN - [facility] [address] [id number] [employer] Bank: Tiffanie Link MD, Phone: [phone] 19 FIRST MORNING SPECIMENS GENERALLY CONTAIN THE HIGHEST CONCENTRATION OF HCG AND ARE RECOMMENDED FOR EARLY DETECTION OF . 20 Note: Persistent reduction for 3 months or more in an eGFR <60 mL/min/1.73 m2 defines CKD. Patients with eGFR values >/=60 mL/min/1.73 m2 may also have CKD if evidence of persistent proteinuria is present. The original MDRD equation for estimated GFR is not valid for patients less than 18 years of age. Additional information may be found at www.[facility].org. 21 Approximate Gestational Age and Total BHCG Range: 0.2 - 1 Week........................5-50 mIU/mL 1 - 2 Weeks.....................50-500 mIU/mL 2 - 3 Weeks..................100-5,000 mIU/mL 3 - 4 Weeks.................500-10,000 mIU/mL 4 - 5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
[2018-06-25 15:04] VITALS: BP 117/82
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
== END 2018-06-25 15:46 | disposition home or self-care (01) ==
LOC: UCCORT 14:48
DX: M54.12 Radiculopathy, cervical region (principal); M54.14 Radiculopathy, thoracic region; J45.909 Unspecified asthma, uncomplicated; Z88.0 Allergy status to penicillin
CPT/HCPCS: 99212; G0463

== ENCOUNTER 2019-05-08 20:04 | Emergency (ER) | payer SELFPAY ==
--- NOTE | 2019-05-08 20:06 | UC ---
Respiratory Complaint HPI - HPI Summary HPI Summary: 23 yo female presents with flu-like symptoms. She tells me that yesterday she develop feeling feverish, fatigue, body aches, and dry cough with decreased appetite. with similar symptoms and tested positive for the flu. Has taken tylenol OTC with little relief. Did not get a flu shot this year. Does not smoke. Denies SOB, chest pain, abdominal pain, vomiting, diarrhea, dysuria. No recent travel or known COVID contact. - History of Current Complaint Stated Complaint: COUGH Time Seen by Provider: 05/08/19 20:06 Hx Obtained From: Patient Hx Last Menstrual Period: 06/24/18 Onset/Duration: Sudden Onset Severity Initially: Mild Severity Currently: Mild Pain Intensity: 3 Pain Scale Used: 0-10 Numeric - Allergies/Home Medications Allergies/Adverse Reactions: Allergies Allergy/AdvReac Type Severity Reaction Status Date / Time Penicillins Allergy Hives Verified 05/08/19 20:17 Home Medications: Home Medications Bcp 1 tab PO DAILY 04/08/17 [History Confirmed 05/08/19] Escitalopram Oxalate [Lexapro 10 mg] 10 mg PO DAILY 05/08/19 [History Confirmed 05/08/19] Loratadine [Claritin 10 MG CAP] 10 mg PO DAILY 05/08/19 [History Confirmed 05/07] Oseltamivir CAP* [Tamiflu CAP*] 75 mg PO BID #10 cap 05/08/19 [Rx] PMH/Surg Hx/FS Hx/Imm Hx Psychological History: Anxiety, Depression Other History Of: Negative For: Anticoagulant Therapy - Surgical History Surgical History: Yes Surgery Procedure, Year, and Place: wisdom teeth extraction. tubes in ears - Family History Known Family History: Positive: Cardiac Disease, Diabetes - Social History Lives: With Family Alcohol Use: Occasionally Substance Use Type: None Smoking Status (MU): Never Smoked Tobacco Review of Systems All Other Systems Reviewed And Are Negative: No Constitutional: Positive: Fatigue, Other - Body aches Skin: Positive: Negative Eyes: Positive: Negative ENT: Positive: Nasal Discharge Respiratory: Positive: Cough Cardiovascular: Positive: Negative Gastrointestinal: Positive: Negative Neurovascular: Positive: Negative Neurological/Mental Status: Positive: Headache Psychological: Positive: Negative Physical Exam - Summary Physical Exam Summary: GENERAL: NAD. WDWN. No pain distress. SKIN: No rashes, sores, lesions, or open wounds. HEENT: Head: AT/NC Eyes: EOM intact. Conjunctiva clear without inflammation or discharge. Ears: Hearing grossly normal. TMs intact, no bulging, erythema, or edema. Nose: Nasal mucosa pink and moist. NTTP maxillary and frontal sinus. Throat: Posterior oropharynx without exudates, erythema, or tonsillar enlargement. Uvula midline. NECK: Supple. Nontender. No lymphadenopathy. CHEST: CTAB. No r/r/w. No accessory muscle use. Breathing comfortably and in no distress. CV: RRR. Pulses intact. Cap refill <2seconds NEURO: Alert. PSYCH: Age appropriate behavior. Triage Information Reviewed: Yes Vital Signs: Vital Signs: Temp Pulse Resp BP Pulse Ox 98.3 F 88 16 135/77 97 05/08/19 20:47 05/08/19 20:47 05/08/19 20:47 05/08/19 20:47 05/08/19 20:47 Laboratory Tests 05/08/19 20:58 Influenza A (Rapid) Negative Influenza B (Rapid) Negative Vital Signs Reviewed: Yes Respiratory Course/Dx - Course Course Of Treatment: Flu negative, but with positive contact and symptomatic - thus will treat as flu - Differential Dx/Diagnosis Provider Diagnosis: Influenza Discharge ED - Sign-Out/Discharge Documenting (check all that apply): Patient Departure All imaging exams completed and their final reports reviewed: No Studies - Discharge Plan Condition: Stable Disposition: HOME Prescriptions: Oseltamivir CAP* [Tamiflu CAP*] 75 mg PO BID #10 cap Patient Education Materials: Influenza (ED) Forms: *Work Release Referrals: Jadiel Iniguez MD [Primary Care Provider] - Additional Instructions: Most people with the flu recover within one to two weeks without treatment. However, serious complications of the flu can occur. Go to the ER immediately if you: -- You feel short of breath or have trouble breathing -- You have pain or pressure in your chest or stomach -- You have signs of being dehydrated, such as dizziness when standing or not passing urine -- You feel confused -- You cannot stop vomiting or you cannot drink enough fluids There are several groups of people who are at increased risk for flu complications. These include women, young children (<5 years of age and especially <2 years of age), people older than 65 years of age, and people with certain diseases such as chronic lung disease (such as asthma), heart disease, diabetes, immunosuppressing conditions (such as HIV infection or transplantation), and some other diseases. Treat symptoms Treating the symptoms of influenza can help you to feel better but will not make the flu go away faster. -- Rest until the flu is fully resolved, especially if the illness has been severe. -- Fluids Drink enough fluids so that you do not become dehydrated. One way to textile knitter if you are drinking enough is to look at the color of your urine. Normally, urine should be light yellow to nearly colorless. If you are drinking enough, you should pass urine every three to five hours. -- Acetaminophen (sample brand name: Tylenol) can relieve fever, headache, and muscle aches. Aspirin and medicines that include aspirin (eg, bismuth subsalicylate [sample brand name: Pepto-Bismol]) are not recommended for children under 18 because aspirin can lead to a serious disease called Rick syndrome. -- Cough medicines are not usually helpful; cough usually resolves without treatment. We do not recommend cough or cold medicine for children under age 6 years. Antiviral treatment Antiviral medicines can be used to treat or prevent influenza. When used as a treatment, the medicine does not eliminate flu symptoms, although it can reduce the severity and duration of symptoms by about one day. Not every person with influenza needs an antiviral medicine, but some people do; the decision is based upon several factors. If you are severely ill and/or have risk factors for developing complications of influenza, you will need an antiviral agent. People who are only mildly ill and have no risk factors for complications usually do not need to be treated with antiviral medication. - Billing Disposition and Condition Condition: STABLE Disposition: Home
--- OUTSIDE RECORDS SUMMARY | 2019-05-08 20:10 | XMS REPORT | Continuity of Care Document ---
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 Onset: 05/10/2011 Allergic rhinitis Jadiel Iniguez M.D. Onset: 05/10/2011 Social History Type Date Description Comments Sex Unknown ETOH Use Rarely consumes alcohol Tobacco Use Start: Unknown Patient has never smoked Allergies, Adverse Reactions, Alerts Active Allergies Reaction Severity Comments Date Penicillin 06/15/2011 Medications Active Medications SIG Qnty Indications Ordering Provider Date Phentermine HCL 1 by mouth every 30caps E66.9 Jadiel Iniguez, 03/20/2019 37.5mg in the morning M.D. Capsules Celexa 1 by mouth every 90tabs F33.9 Jadiel Iniguez, 10/09/2018 20mg Tablets day at night M.D. F41.9 Crestor take one tablet by 90tabs E78.2 Jadiel Iniguez, 03/15/2018 10mg Tablets mouth at bedtime M.D. Vitamin D3 1 by mouth every 90caps E55.9 Jadiel Iniguez, 03/15/2018 1000Unit day M.D. Capsules Claritin 1 by mouth every 90tabs J30.9 Jadiel Iniguez, 03/01/2018 10mg Tablets day M.D. Singulair 1 tab by mouth at 90tabs J45.909 Jadiel Iniguez, 03/01/2018 10mg Tablets bedtime M.D. Omeprazole 1 by mouth every 30caps K21.9 Jadiel Iniguez, 03/01/2018 20mg [address]aps[address] day M[address] DR Dang HFA 2 puffs qid prn 2Mdi J45.909 Jadiel Iniguez, 11/10/2012 108(90Base) M.DJennifer mcg/Act Aerosol .07/20 Take 1 Tablet By Unknown Mouth Every Day 1.5-30mg-mcg Tablets History Medications Azithromycin 1 tab by mouth 10tabs Jadiel Iniguez, 03/20/2019 - 500mg every day x 10 M.D. 03/23/2019 Tablets days Phentermine HCL 1 by mouth 30caps E66.9 Jadiel Iniguez, 11/24/2018 - 30mg every day M.D. 03/20/2019 Capsules Azithromycin z elsie uad 6tabs Jadiel Iniguez, 11/06/2018 - 250mg M.D. 11/10/2018 Tablets Medications Administered in Office Medication SIG Qnty Indications Ordering Provider Date Jadiel Ford M.D. 11/19/2004 Injection Immunizations CPT Code Status Date Vaccine Lot # [id number] Given 08/14/2009 Meningococcal Conjugate Vaccine 27419 Given 08/14/2009 Prevnar 80523 Given 01/09/2009 Flu Vaccine 45491 Given 10/20/2006 TDaP 55362 Given 11/10/2004 Varicella Vaccine 95399 Given 09/17/1998 MMR 14170 Given 09/06/1998 IPV 25039 Given 07/07/1998 DTaP [facility] [id number] ML 0.50 88957 Given 04/28/1995 MMR 22971 Given 07/07/1994 Hep B To Age 16 69025 Given 01/07/1994 IPV 08211 Given 01/07/1994 DTaP [facility] [id number] ML 0.50 67946 Given 01/07/1994 Hemophilus Influenza B Vaccine 15404 Given 1993 IPV 94920 Given 1993 DTaP ND [id number] ML 0.50 37085 Given 1993 Hemophilus Influenza B Vaccine 32841 Given 1993 Hep B To Age 16 03134 Given 1993 IPV 60875 Given 1993 DTaP NDC [id number] ML 0.50 21351 Given 1993 Hemophilus Influenza B Vaccine 04341 Given 1993 Hep B To Age 16 54617 Refused 12/12/2013 Flu Vaccine Vital Signs Date Vital Result Comment 04/25/2019 10:35am BP Systolic 122 mmHg BP Diastolic 68 mmHg Height 64 inches 5'4" Weight 189.00 lb BMI (Body Mass Index) 32.4 kg/m2 Heart Rate 93 /min Respiratory Rate 16 /min 03/20/2019 3:34pm BP Systolic 116 mmHg BP Diastolic 65 mmHg Height 64 inches 5'4" Weight 197.00 lb BMI (Body Mass Index) 33.8 kg/m2 Heart Rate 88 /min Respiratory Rate 16 /min Results Test Acquired Date Facility Test Result H/L Range Note Laboratory test 04/25/2019 [facility] Vitamin D 25 <pending> finding [address] Hydroxy (607)- - Hemoglobin A1c <pending> Laboratory test 04/25/2019 [facility] TSH, Ultrasenstive <pending> finding [address] (607)- - Laboratory test 12/25/2018 [facility] Tramadol Negative ng/mL Normal 5 1 finding Phentermine Positive >5000 I <SEE NOTE> ng/mL Abnormal 50 2 Ethyl Glucuronide 12/25/2018 [facility] Ethyl Glucuronide Negative Normal 500 ng/mL PDF SEE IMAGE Urine DRG SCR 12/25/2018 [facility] Amphetamine NEGATIVE Normal 1000 (12PNL-PM) Barbiturate NEGATIVE Normal 200 Benzodiazepine NEGATIVE Normal 200 Buprenorphine NEGATIVE Normal 15 Cannabinoid NEGATIVE Normal 50 Cocaine NEGATIVE Normal 300 Methadone NEGATIVE Normal 300 Opiate NEGATIVE Normal 300 Oxycodone NEGATIVE Normal 300 Phencyclidine NEGATIVE Normal 25 3 Cocaine Panel By 12/25/2018 [facility] Benzoylecgonine Negative Normal 50 4 LC/MS/MS (Cocaine) ng/mL Amphetamine 12/25/2018 [facility] Amphetamine Negative Normal 50 Panel By ng/mL LC/MS/MS Methamphetamine Negative ng/mL Normal 50 Mdma (Ecstasy) Negative ng/mL Normal 50 Mda Negative ng/ml Normal 50 Mdea Negative ng/mL Normal 50 5 Specimen Validity 12/25/2018 [facility] Creatinine, Urine 187 mg/ dL Normal >20 Panel Color YELLOW Normal Yellow pH 5.3 Normal 5.0-8.0 Specific [place] 1.026 Normal 1.001-1.035 6 Opiates Panel 12/25/2018 [facility] 6-Mj (Heroin Negative ng/mL Normal 5 By LC/MS/MS Metabolite) Codeine Negative ng/mL Normal 50 Hydrocodone Negative ng/mL Normal 50 Hydromorphone Negative ng/mL Normal 50 Morphine Negative ng/mL Normal 50 Norhydrocodone Negative ng/mL Normal 50 Noroxycodone Negative ng/mL Normal 50 Noroxymorphone Negative ng/mL Normal 50 Oxycodone Negative ng/mL Normal 50 Oxymorphone Negative ng/mL Normal 50 7 Methadone Panel By 12/25/2018 [facility] Eddp Negative ng/mL Normal 10 LC/MS/MS Methadone Negative ng/mL Normal 10 8 Buprenorphine Panel 12/25/2018 [facility] Buprenorphine Negative ng/mL Normal 5 By LC/MS/MS Naloxone Negative ng/mL Normal 10 Norbuprenorphine Negative ng/mL Normal 5 9 Benzodiazepines 12/25/2018 [facility] 2-Hydroxyethylflurazepam Negative Normal 10 Panel By LC/MS/MS ng/mL 7-Aminoclonazepam Negative ng/mL Normal 10 Alprazolam Negative ng/mL Normal 10 Chlordiazepoxide Negative ng/mL Normal 10 Clonazepam Negative ng/mL Normal 10 Desalkylflurazepam Negative ng/mL Normal 10 Diazepam Negative ng/mL Normal 10 Lorazepam Negative ng/mL Normal 10 Midazolam Negative ng/ml Normal 10 Nordiazepam Negative ng/mL Normal 10 Alpha-hydroxyalprazolam Negative ng/mL Normal 10 Alpha-Hydroxymidazolam Negative ng/mL Normal 10 Alpha-Hydroxytriazolam Negative ng/mL Normal 10 Oxazepam Negative ng/mL Normal 10 Prazepam Negative ng/mL Normal 10 Temazepam Negative ng/mL Normal 10 10 Barbiturates Panel 12/25/2018 [facility] Butalbital Negative ng/ mL Normal 100 By LC/MS/MS Pentobarbital Negative ng/mL Normal 100 Phenobarbital Negative ng/mL Normal 100 Secobarbital Negative ng/mL Normal 100 11 Antidepressants Panel 12/25/2018 [facility] Amitriptyline Negative Normal 20 By LC/MS/MS ng/mL Clomipramine Negative ng/mL Normal 20 Desipramine Negative ng/mL Normal 20 Doxepin Negative ng/mL Normal 20 Fluoxetine Negative ng/mL Normal 20 Imipramine Negative ng/mL Normal 20 Norclomipramine Negative ng/mL Normal 20 Nordoxepin Negative ng/mL Normal 20 Nortriptyline Negative ng/mL Normal 20 Sertraline Negative ng/mL Normal 20 Trimipramine Negative ng/mL Normal 20 12 Urine Drug 12/25/2018 [facility] [id number]-Gnacr-4-Cooh Negative Normal 5 13 [place] ng/mL Laboratory test 11/15/2018 [facility] Free Thyroxine @ 0.76 ng/dL ( 0.76 finding [address] -1.46 (204)- - ) TSH,Ultrasensitive @ 1.340 mIU/L (0.360-4.170) 25 Hydroxy Vit D @ 30 ng/mL Low (31-100) 14 Lyme Disease 11/15/2018 [facility] Lyme Igm/Igg AB @ NEGATIVE (Neg) 15 Antibodies [address] Igg/Igm (604)- - Lipid 11/15/2018 [facility] Cholesterol @ 190 mg/dL (0-200) [address] (603)- - Triglyceride @ 134 mg/dL (30-200) HDL Cholesterol @ 58 mg/dL (>40) 16 Chol/HDL Ratio 3.3 RATIO 17 LDL Chol (Calc) 105 mg/dL (<130) 18 Hepatitis Profile 11/15/2018 [facility] Hepatitis B S Ag NEGATIVE (Neg ) Acute [address] @ (607)- - Hep. B Core Igm @ NEGATIVE (Neg) Hepatitis A AB Igm @ NEGATIVE (Neg) Hepatitis C AB @ NEGATIVE (Neg) 19 Hemoglobin A1c 11/15/2018 [facility] Hemoglobin A1c @ 5.6 % (4.0-6.0) 20 [address] (708)- - Est Average Glucose 114 mg/dL CMP 11/15/2018 [facility] Sodium 140 mmol/L (136-145) [address] (772)- - Potassium 4.4 mmol/L (3.6-5.2) Chloride 103 mmol/L (100-108) Co2 29 mmol/L (22-31) Anion Gap 8 mmol/L (7-16) Urea Nitrogen 13 mg/dL (7-24) Creatinine 0.67 mg/dL (0.60-1.00) BUN/Creat Ratio 19.4 RATIO (10.0-20.0) Glucose 67 mg/dL Low (70-99) Calcium 8.8 mg/dL (8.4-10.2) Total Protein 7.1 g/dL (6.4-8.2) Albumin 3.6 g/dL (3.5-4.6) Globulin 3.5 g/dL (2.7-4.3) Alb/Glob Ratio 1.0 RATIO Alkaline Phosphatase 81 U/L (45-117) Bilirubin,Total 0.3 mg/dL (0.0-1.0) Ast (Sgot) 28 U/L (11-39) Alt (SGPT) 22 U/L (12-78) GFR >60 ml/min/1.73m2 (>59) GFR ( Amer) >60 ml/min/1.73m2 (>59) GFR Interpretation <SEE NOTE> 21 CBC With Diff 11/15/2018 [facility] WBC 4.5 10*3/uL (4.1-11.0) [address] (607)- - RBC 4.44 10*6/uL (4.00-5.40) HGB 13.3 g/dL (12.0-16.0) HCT 39.3 % (36.0-47.0) MCV 88.5 fL (80.0-95.0) MCH 29.9 pg (27.0-32.0) MCHC 33.8 g/dL (32.0-36.0) RDW 12.6 % (10.5-14.5) PLT 267 10*3/uL (150-450) MPV 8.1 fL (7.1-10.7) Neut % 56.2 % (35.0-75.0) Lymph % 32.5 % (16.0-52.0) Branch % 10.4 % High (0.0-8.0) Eos % 0.5 % (0.0-5.0) Baso % 0.4 % (0.0-4.0) Neut # 2.5 10*3/uL (1.8-7.7) Lymph # 1.5 10*3/uL (1.2-4.8) Branch # 0.5 10*3/uL (0.0-0.8) Eos # 0.0 10*3/uL (0.0-0.5) Baso # 0.0 10*3/uL (0.0-0.2) 1 Prescribed Medications: No prescribed medications were listed on the requisition form. 2 Positive >5000 Inconsistent Prescribed Medications: No prescribed medications were listed on the requisition form. 3 Prescribed Medications: No prescribed medications were listed on the requisition form. 4 Prescribed Medications: No prescribed medications were listed on the requisition form. 5 Prescribed Medications: No prescribed medications were listed on the requisition form. 6 Prescribed Medications: No prescribed medications were listed on the requisition form. 7 Prescribed Medications: No prescribed medications were listed on the requisition form. 8 Prescribed Medications: No prescribed medications were listed on the requisition form. 9 Prescribed Medications: No prescribed medications were listed on the requisition form. 10 Prescribed Medications: No prescribed medications were listed on the requisition form. 11 Prescribed Medications: No prescribed medications were listed on the requisition form. 12 Prescribed Medications: No prescribed medications were listed on the requisition form. 13 Prescribed Medications: No prescribed medications were listed on the requisition form. 14 A REVIEW OF THE LITERATURE SUGGESTS THE FOLLOWING RANGES FOR THE CLASSIFICATION OF 25-OH VITAMIN D STATUS: VITAMIN D STATUS 25-OH VITAMIN D DEFICIENCY <20 NG/ML INSUFFICIENCY 20-30 NG/ML SUFFICIENCY 31 - 100 NG/ML TOXICITY > 100 NG/ML A PEDIATRIC REFERENCE RANGE HAS NOT BEEN ESTABLISHED USING THIS METHOD. 15 A Negative serologic test for Lyme Disease indicates no serologic evidence of infection with B burgdorferi at the time this specimen was collected. A repeat specimen should be collected in 2 to 4 weeks if clinically indicated. 16 PER NCEP ATP III GUIDELINES: RESULTS LOWER THAN 40 MG/DL ARE SUGGESTIVE OF INCREASED RISK FOR CORONARY ARTERY DISEASE. RESULTS > OR = TO 60 MG/DL ARE CONSIDERED A NEGATIVE RISK FACTOR. 17 INTERPRETATION OF CHOL-HDL RATIO CHD RISK FEMALE MALE VERY HIGH >8.3 >14.3 HIGH 5.6- 8.3 6.7- 14.3 AVERAGE 3.7- 5.6 4.0- 6.7 BELOW AVERAGE 2.5- 3.7 2.7- 4.0 PROTECTED <2.5 <2.7 18 PER NCEP ATP III GUIDELINES: OPTIMAL < 100 NEAR OPTIMAL 100 - 129 BORDERLINE HIGH 130 - 159 HIGH 160 - 189 VERY HIGH > 189 19 NOT INFECTED WITH HCV, UNLESS RECENT INFECTION IS SUSPECTED OR OTHER EVIDENCE EXISTS TO INDICATE HCV INFECTION. 20 Performed using [employer] immunoassay. Care must be taken when interpreting HbA1c results in patients with a hemoglobin variant or decreased erythrocyte lifespan. Values 5.7 - 6.4% suggest prediabetes. Values >=6.5% are diagnostic for diabetes. REFERENCE: DIABETES CARE 2018: 41(S13-S27). 21 NORMAL KIDNEY FUNCTION OR MILD DISEASE - GFR >OR= 60 CHRONIC KIDNEY DISEASE - GFR 15 - 59 RENAL FAILURE - GFR <15 Est. GFR calculation based on the MDRD study equation, which assumes a steady state for creatinine. Est. GFR should not be used for medication dosing. 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 uncomplicated J30.9 Allergic rhinitis, unspecified L20.9 Atopic dermatitis, unspecified K21.9 Gastro-esophageal reflux disease without esophagitis E66.9 Obesity, unspecified E55.9 Vitamin D deficiency, unspecified R73.01 Impaired fasting glucose E78.2 Mixed hyperlipidemia H81.13 Benign paroxysmal vertigo, bilateral F41.9 Anxiety disorder, unspecified F33.9 Major depressive disorder, recurrent, unspecified J20.9 Acute bronchitis, unspecified J01.40 Acute pansinusitis, unspecified H66.93 Otitis media, unspecified, bilateral R06.02 Shortness of breath R05 Cough R09.81 Nasal congestion Office Visit 02/02/2019 4:00p [facility] Александр [id number] Unspecified asthma, N.P. uncomplicated J30.9 Allergic rhinitis, unspecified L20.9 Atopic dermatitis, unspecified K21.9 Gastro-esophageal reflux disease without esophagitis E66.9 Obesity, unspecified E55.9 Vitamin D deficiency, unspecified R73.01 Impaired fasting glucose E78.2 Mixed hyperlipidemia H81.13 Benign paroxysmal vertigo, bilateral F41.9 Anxiety disorder, unspecified F33.9 Major depressive disorder, recurrent, unspecified B35.4 Tinea corporis R10.84 Generalized abdominal pain Z13.29 Encounter for screening for oth suspected endocrine disorder Office Visit 12/25/2018 3:30p [facility] Vincent Garcia J45.909 Unspecified asthma, N.P. uncomplicated J30.9 Allergic rhinitis, unspecified L20.9 Atopic dermatitis, unspecified K21.9 Gastro-esophageal reflux disease without esophagitis E66.9 Obesity, unspecified E55.9 Vitamin D deficiency, unspecified R73.01 Impaired fasting glucose E78.2 Mixed hyperlipidemia H81.13 Benign paroxysmal vertigo, bilateral F41.9 Anxiety disorder, unspecified F33.9 Major depressive disorder, recurrent, unspecified B35.4 Tinea corporis R10.84 Generalized abdominal pain Z13.29 Encounter for screening for oth suspected endocrine disorder Office Visit 11/24/2018 3:45p [facility] Александр [id number] Unspecified asthma, N.P. uncomplicated J30.9 Allergic rhinitis, unspecified L20.9 Atopic dermatitis, unspecified K21.9 Gastro-esophageal reflux disease without esophagitis E66.9 Obesity, unspecified E55.9 Vitamin D deficiency, unspecified R73.01 Impaired fasting glucose E78.2 Mixed hyperlipidemia H81.13 Benign paroxysmal vertigo, bilateral F41.9 Anxiety disorder, unspecified F33.9 Major depressive disorder, recurrent, unspecified B35.4 Tinea corporis R10.84 Generalized abdominal pain Z13.29 Encounter for screening for oth suspected endocrine disorder Office Visit 11/15/2018 11:00a [facility] Vincent Garcia, J45.909 Unspecified asthma, N.P. uncomplicated J30.9 Allergic rhinitis, unspecified L20.9 Atopic dermatitis, unspecified K21.9 Gastro-esophageal reflux disease without esophagitis E66.9 Obesity, unspecified E55.9 Vitamin D deficiency, unspecified R73.01 Impaired fasting glucose E78.2 Mixed hyperlipidemia H81.13 Benign paroxysmal vertigo, bilateral F41.9 Anxiety disorder, unspecified F33.9 Major depressive disorder, recurrent, unspecified B35.4 Tinea corporis R10.84 Generalized abdominal pain Z13.29 Encounter for screening for oth suspected endocrine disorder Office Visit 11/06/2018 9:30a [facility] Vincent Garcia, J45.909 Unspecified asthma, N.P. uncomplicated J30.9 Allergic rhinitis, unspecified L20.9 Atopic dermatitis, unspecified K21.9 Gastro-esophageal reflux disease without esophagitis E66.9 Obesity, unspecified E55.9 Vitamin D deficiency, unspecified R73.01 Impaired fasting glucose E78.2 Mixed hyperlipidemia H81.13 Benign paroxysmal vertigo, bilateral F41.9 Anxiety disorder, unspecified F33.9 Major depressive disorder, recurrent, unspecified B35.4 Tinea corporis R10.84 Generalized abdominal pain J01.40 Acute pansinusitis, unspecified J32.4 Chronic pansinusitis H66.92 Otitis media, unspecified, left ear Assessments Date Code Description Provider 04/25/2019 J45.909 Unspecified asthma, uncomplicated Augustine, Devon Gagnon, ELECT[employer] APPLIANCE MECHANIC 04/25/2019 J30.9 Allergic rhinitis, unspecified Augustine, Devon Gagnon, ELECTRICAL APPLIANCE MECHANIC 04/25/2019 L20.9 Atopic dermatitis, unspecified Augustine, Devon P, ELECTRICAL APPLIANCE MECHANIC 04/25/2019 K21.9 Gastro-esophageal reflux disease without Augustine, Devon P, E[employer] APPLIANCE MECHANIC esophagitis 04/25/2019 E66.9 Obesity, unspecified Augustine, Devon P, ELECTRICAL APPLIANCE MECHANIC 04/25/2019 E55.9 Vitamin D deficiency, unspecified Augustine, Devon P, ELECTRICAL APPLIANCE MECHANIC 04/25/2019 R73.01 Impaired fasting glucose Augustine, Devon P, ELECTRICAL APPLIANCE MECHANIC 04/25/2019 E78.2 Mixed hyperlipidemia Augustine, Devon P, ELECTRICAL APPLIANCE MECHANIC 04/25/2019 H81.13 Benign paroxysmal vertigo, bilateral Augustine, Devon P, ELECTRICAL APPLIANCE MECHANIC 04/25/2019 F41.9 Anxiety disorder, unspecified Augustine, Devon P, ELECTRICAL APPLIANCE MECHANIC 04/25/2019 F33.9 Major depressive disorder, recurrent, Augustine, Devon P, ELECTRICAL APPLIANCE MECHANIC unspecified 04/25/2019 Z00.01 Encounter for general adult medical Devon Augustine P, [employer]PLIANCE MECHANIC examination with abnormal findings 04/24/2019 J45.909 Unspecified asthma, uncomplicated HiraJadiel M.D. 04/24/2019 J30.9 Allergic rhinitis, unspecified HiraJadiel M.D. 04/24/2019 L20.9 Atopic dermatitis, unspecified HiraJadiel M.D. 04/24/2019 K21.9 Gastro-esophageal reflux disease without HiraJadiel M.D. esophagitis 04/24/2019 E66.9 Obesity, unspecified HiraJadiel M.D. 04/24/2019 E55.9 Vitamin D deficiency, unspecified HiraJadiel M.D. 04/24/2019 R73.01 Impaired fasting glucose Jadiel Iniguez M.D. 04/24/2019 E78.2 Mixed hyperlipidemia Jadiel Iniguez M.D. 04/24/2019 H81.13 Benign paroxysmal vertigo, bilateral HiraJadiel M.D. 04/24/2019 F41.9 Anxiety disorder, unspecified HiraJadiel M.D. 04/24/2019 F33.9 Major depressive disorder, recurrent, HiraJadiel M.D. unspecified 04/24/2019 J20.9 Acute bronchitis, unspecified HiraJadiel M.D. 04/24/2019 J01.40 Acute pansinusitis, unspecified Jadiel Iniguez M.D. 04/24/2019 H66.93 Otitis media, unspecified, bilateral Jadiel Iniguez M.D. 04/24/2019 R06.02 Shortness of breath Jadiel Iniguez M.D. 04/24/2019 R05 Cough Jadiel Iniguez M.D. 04/24/2019 R09.81 Nasal congestion Jadiel Iniguez M.D. 03/20/2019 J45.909 Unspecified asthma, uncomplicated Jadiel Iniguez M.D. 03/20/2019 J30.9 Allergic rhinitis, unspecified HiraJadiel M.D. 03/20/2019 L20.9 Atopic dermatitis, unspecified Jadiel Iniguez M.D. 03/20/2019 K21.9 Gastro-esophageal reflux disease without HiraJadiel M.D. esophagitis 03/20/2019 E66.9 Obesity, unspecified HiraJadiel hodge M.D. 03/20/2019 E55.9 Vitamin D deficiency, unspecified Jadiel Iniguez M.D. 03/20/2019 R73.01 Impaired fasting glucose HiraJadiel M.D. 03/20/2019 E78.2 Mixed hyperlipidemia Jadiel Iniguez M.D. 03/20/2019 H81.13 Benign paroxysmal vertigo, bilateral Jadiel Iniguez M.D. 03/20/2019 F41.9 Anxiety disorder, unspecified HiraJadiel M.D. 03/20/2019 F33.9 Major depressive disorder, recurrent, HiraJadiel M.D. unspecified 03/20/2019 J20.9 Acute bronchitis, unspecified HiraJadiel M.D. 03/20/2019 J01.40 Acute pansinusitis, unspecified HiraJadiel M.D. 03/20/2019 H66.93 Otitis media, unspecified, bilateral HiraJadiel nichols M.D. 03/20/2019 R06.02 Shortness of breath Jadiel Iniguez M.D. 03/20/2019 R05 Cough HiraJadiel M.D. 03/20/2019 R09.81 Nasal congestion Jadiel Iniguez M.D. 02/02/2019 J45.909 Unspecified asthma, uncomplicated Vincent Garcia, N.P. 02/02/2019 J30.9 Allergic rhinitis, unspecified Vincent Garcia, N.P. 02/02/2019 L20.9 Atopic dermatitis, unspecified Vincent Garcia, N.P. 02/02/2019 K21.9 Gastro-esophageal reflux disease without Vincent Garcia, N.P. esophagitis 02/02/2019 E66.9 Obesity, unspecified Vincent Garcia, N.P. 02/02/2019 E55.9 Vitamin D deficiency, unspecified Vincent Garcia, N.P. 02/02/2019 R73.01 Impaired fasting glucose Vincent Garcia, N.P. 02/02/2019 E78.2 Mixed hyperlipidemia Vincent Garcia, N.P. 02/02/2019 H81.13 Benign paroxysmal vertigo, bilateral Vincent Garcia, N.P. 02/02/2019 F41.9 Anxiety disorder, unspecified Vincent Garcia, N.P. 02/02/2019 F33.9 Major depressive disorder, recurrent, Vincent Garcia, N.P. unspecified 02/02/2019 B35.4 Tinea corporis Vincent Garcia, N.P. 02/02/2019 R10.84 Generalized abdominal pain Vincent Garcia, N.P. 02/02/2019 Z13.29 Encounter for screening for other suspected Vincent Garcia , N.P. endocrine disorder 12/25/2018 J45.909 Unspecified asthma, uncomplicated Vincent Garcia, N.P. 12/25/2018 J30.9 Allergic rhinitis, unspecified Vincent Garcia, N.P. 12/25/2018 L20.9 Atopic dermatitis, unspecified Vincent Garcia, N.P. 12/25/2018 K21.9 Gastro-esophageal reflux disease without Vincent Garcia, N.P. esophagitis 12/25/2018 E66.9 Obesity, unspecified Vincent Garcia, N.P. 12/25/2018 E55.9 Vitamin D deficiency, unspecified Vincent Garcia, N.P. 12/25/2018 R73.01 Impaired fasting glucose Vincent Garcia, N.P. 12/25/2018 E78.2 Mixed hyperlipidemia Vincent Garcia, N.P. 12/25/2018 H81.13 Benign paroxysmal vertigo, bilateral Vincent Garcia, N.P. 12/25/2018 F41.9 Anxiety disorder, unspecified Vincent Garcia, N.P. 12/25/2018 F33.9 Major depressive disorder, recurrent, Vincent Garcia, N.P. unspecified 12/25/2018 B35.4 Tinea corporis Vincent Garcia, N.P. 12/25/2018 R10.84 Generalized abdominal pain Vincent Garcia N.P. 12/25/2018 Z13.29 Encounter for screening for other suspected Vincent Garcia , N.P. endocrine disorder 11/24/2018 J45.909 Unspecified asthma, uncomplicated Vincent Garcia, N.P. 11/24/2018 J30.9 Allergic rhinitis, unspecified Vincent Garcia, N.P. 11/24/2018 L20.9 Atopic dermatitis, unspecified Vincent Garcia, N.P. 11/24/2018 K21.9 Gastro-esophageal reflux disease without Vincent Garcia, N.P. esophagitis 11/24/2018 E66.9 Obesity, unspecified Vincent Garcia, N.P. 11/24/2018 E55.9 Vitamin D deficiency, unspecified Vincent Garcia, N.P. 11/24/2018 R73.01 Impaired fasting glucose Vincent Garcia, N.P. 11/24/2018 E78.2 Mixed hyperlipidemia Vincent Garcia, N.P. 11/24/2018 H81.13 Benign paroxysmal vertigo, bilateral Vincent Garcia, N.P. 11/24/2018 F41.9 Anxiety disorder, unspecified Vincent Garcia, N.P. 11/24/2018 F33.9 Major depressive disorder, recurrent, Vincent Garcia N.P. unspecified 11/24/2018 B35.4 Tinea corporis Vincent Garcia, N.P. 11/24/2018 R10.84 Generalized abdominal pain Vincent Garcia, N.P. 11/24/2018 Z13.29 Encounter for screening for other suspected Vincent Garcia , N.P. endocrine disorder 11/15/2018 J45.909 Unspecified asthma, uncomplicated Vincent Garcia, N.P. 11/15/2018 J30.9 Allergic rhinitis, unspecified Vincent Garcia, N.P. 11/15/2018 L20.9 Atopic dermatitis, unspecified Vincent Garcia, N.P. 11/15/2018 K21.9 Gastro-esophageal reflux disease without Vincent Garcia, N.P. esophagitis 11/15/2018 E66.9 Obesity, unspecified Vincent Garcia, N.P. 11/15/2018 E55.9 Vitamin D deficiency, unspecified Vincent Garcia, N.P. 11/15/2018 R73.01 Impaired fasting glucose Vincent Garcia, N.P. 11/15/2018 E78.2 Mixed hyperlipidemia Vincent Garcia, N.P. 11/15/2018 H81.13 Benign paroxysmal vertigo, bilateral Vincent Garcia, N.P. 11/15/2018 F41.9 Anxiety disorder, unspecified Vincent Garcia, N.P. 11/15/2018 F33.9 Major depressive disorder, recurrent, Vincent Garcia, N.P. unspecified 11/15/2018 B35.4 Tinea corporis Vincent Garcia, N.P. 11/15/2018 R10.84 Generalized abdominal pain Vincent Garcia, N.P. 11/15/2018 Z13.29 Encounter for screening for other suspected Vincent Garcia , N.P. endocrine disorder 11/06/2018 J45.909 Unspecified asthma, uncomplicated Vincent Garcia, N.P. 11/06/2018 J30.9 Allergic rhinitis, unspecified Vincent Garcia, N.P. 11/06/2018 L20.9 Atopic dermatitis, unspecified Vincent Garcia, N.P. 11/06/2018 K21.9 Gastro-esophageal reflux disease without Vincent Garcia, N.P. esophagitis 11/06/2018 E66.9 Obesity, unspecified Vincent Garcia, N.P. 11/06/2018 E55.9 Vitamin D deficiency, unspecified Vincent Garcia, N.P. 11/06/2018 R73.01 Impaired fasting glucose Vincent Garcia, N.P. 11/06/2018 E78.2 Mixed hyperlipidemia Vincent Garcia, N.P. 11/06/2018 H81.13 Benign paroxysmal vertigo, bilateral Vincent Garcia, N.P. 11/06/2018 F41.9 Anxiety disorder, unspecified Vincent Garcia, N.P. 11/06/2018 F33.9 Major depressive disorder, recurrent, Vincent Garcia, N.P. unspecified 11/06/2018 B35.4 Tinea corporis Vincent Garcia, N.P. 11/06/2018 R10.84 Generalized abdominal pain Vincent Garcia, N.P. 11/06/2018 J01.40 Acute pansinusitis, unspecified Vincent Garcia, N.P. 11/06/2018 J32.4 Chronic pansinusitis Vincent Garcia, N.P. 11/06/2018 H66.92 Otitis media, unspecified, left ear Vincent Garcia N.Kalin. Plan of Treatment Future Appointment(s):05/09/2019 4:00 pm - Devon Augustine, ELECTR[employer] APPLIANCE MECHANIC at [facility] - Devon Augustine, NPJ45.909 Unspecified asthma, uncomplicatedComments: MDI / NEBULIZER [place] PRN AVOID EXPOSURE TO SMOKING OR FXQRMH99.9 Allergic rhinitis , unspecifiedComments:INCREASE PO FLUID USE ANTIHISTAMINE PRN SECOND HAND SMOKING FXZDBKUSTQ18.9 Atopic dermatitis, unspecifiedComments:SKIN CARE INSTRUCTIONS EUCERIN CREAM OR BABY OIL 2-3 APPLICATION PER DAYUSE MOISTURIZING SOAPAVOID PROLONGED WATER EXPOSUREAVOID USING HOT WATER IN VQRNMMA32.9 Gastro-esophageal reflux disease without esophagitisComments:USES PPI ONLY NEEDEDAVOID CAFFEINE, ETOH AND SPICY FOODSTUMS OR MYLANTA PRN CALL WITH PROBLEMS GEZSHOTKJDJ70.9 Obesity, unspecifiedComments:WT LOSS COUNCELLINGEXERCISEDIET COUNCILLING DUR CHECKED HANDOUT ON DIET GIVEN TO PT WITH ICEOFDQNFPQGWLMRS31.9 Vitamin D deficiency, unspecifiedComments:INCREASE EXPOSURE TO SUNREVIEW OF DIETR73.01 Impaired fasting glucoseComments:F/U HGAICFS QAC AN HS PRNLOW GLUCOSE DIETE78.2 Mixed hyperlipidemiaComments:DIET REVIEWED CONTINUE DIETWT LOSSF/U LAB FBWFollow up:2 weeks.H81.13 Benign paroxysmal vertigo, bilateralComments:SAFETY GROSSLY SLDREPWXC97.9 Anxiety disorder, unspecifiedComments:COUNCELLING AND REASSURANCE RELAXATION TECHNIQUESSTRESSORS IN LIFE AVOID ALL ENERGY/HIGH CAFFEINE WQBDZRU03.9 Major depressive disorder, recurrent, unspecifiedComments:COUNCELLING AND REASSURANCE RELAXATION TECHNIQUESSTRESSORS IN LIFE AVOID ALL ENERGY/HIGH CAFFEINE NTOYHIX71.01 Encounter for general adult medical examination with abnormal findingsComments:GOOD NUTRITION /EXERCISEDENTAL/ FLOSSING/ SELF CAREDROWNING/ SUN SAFETYSEAT BELT/ DRIVING SAFETYSPORT BIKE/ HELMET USESPORTS/ INJURY PREVENTIONVIOLENCE PREVENTION/ GUN SAFETYPARENTING ADVICE"SAFE AT HOME"SEX EDUCATION/ COUNSELINGBREAST/ TESTICULAR SELF EXAMEDUCATION GOALS/ ACTIVITIESLIMIT TV/ INTERNETUSETOBACCO/ ALCOHOL/ DRUGS/ INHALANTSPEER REFUSAL SKILLSSOCIAL INTERACTIONFAMILY FUNCTIONINGSELF CONTROLDEPRESSION/ ANXIETYNEXT APPOINTMENTYEARLY PHYSICAL WELLNESS EVALUATION Functional Status Description No Information Available Mental Status Description No Information Available Referrals Description No Information Available
--- OUTSIDE RECORDS SUMMARY | 2019-05-08 20:10 | XMS REPORT | Continuity of Care Document ---
:1995 External Reference #:[id number] Author Name Jadiel Iniguez M.D. Address [address] [place] [address] Care Team Providers Name Role Phone Jadiel Iniguez MD - Family Medicine Care Team Information Cathode Maker [phone] Problems Active Problems Provider Date Oral contraceptive prescribed Chalino Mora EDITOR NEWSPAPER Onset: 05/10/2011 Contraception care education Chalino Mora EDITOR NEWSPAPER Onset: 05/10/2011 Herpes zoster without complication Jadiel Iniguez M.D. Onset: 05/10/2011 Allergic rhinitis Jadiel Iniguez M.D. Onset: 05/10/2011 Social History Type Date Description Comments Sex Unknown ETOH Use Rarely consumes alcohol Tobacco Use Start: Unknown Patient has never smoked Allergies, Adverse Reactions, Alerts Active Allergies Reaction Severity Comments Date Penicillin 06/15/2011 Medications Active Medications SIG Qnty Indications Ordering Provider Date Azithromycin 1 tab by mouth 10tabs J20.9 Jadiel Iniguez, 03/20/2019 500mg every day x 10 M.D. Tablets days Phentermine HCL 1 by mouth every 30caps [...] 03/01/2018 20mg Capsules day M.D. DR Dang HFRuby 2 puffs qid prn 2Mdi J45.909 Jadiel Iniguez, 11/10/2012 108(90Base) M.D. mcg/Act .07/20 Take 1 Tablet By Unknown Mouth Every Day 1.5-30mg-mcg Tablets History Medications Phentermine HCL 1 by mouth 30caps E66.9 Jadiel Iniguez, 11/24/2018 - 30mg every day M.D. 03/20/2019 Capsules Azithromycin z elsie uad 6tabs Jadiel Iniguez, 11/06/2018 - 250mg M.D. 11/10/2018 Tablets Celexa 1 by mouth 90tabs F33.9 Jadiel Iniguez, 09/26/2018 - 40mg Tablets every day M.D. 10/09/2018 F41.9 Diflucan 1 by mouth twice a 20tabs Jadiel Iniguez, 09/26/2018 - 100mg Tablets day M.D. 10/06/2018 Clotrimazole apply to affected 45gm Jadiel Iniguez, 09/26/2018 - 1% Cream area three times a M.D. 10/20/2018 day Medications Administered in Office Medication SIG Qnty Indications Ordering Provider Date Jadiel Ford M.D. 11/19/2004 Injection Immunizations CPT Code Status Date Vaccine Lot # [id number] Given 08/14/2009 Meningococcal Conjugate Vaccine 10601 Given 08/14/2009 Prevnar 19299 Given 01/09/2009 Flu Vaccine 01166 Given 10/20/2006 TDaP 84571 Given 11/10/2004 Varicella Vaccine 41420 Given 09/17/1998 MMR 56132 Given 09/06/1998 IPV 98982 Given 07/07/1998 DTaP [facility] [id number] ML 0.50 96012 Given 04/28/1995 MMR 07059 Given 07/07/1994 Hep B To Age 16 32522 Given 01/07/1994 IPV 30513 Given 01/07/1994 DTaP [facility] [id number] ML 0.50 66926 Given 01/07/1994 Hemophilus Influenza B Vaccine 66943 Given 1993 IPV 99954 Given 1993 DTaP NDC [id number] ML 0.50 33553 Given 1993 Hemophilus Influenza B Vaccine 81318 Given 1993 Hep B To Age 16 08632 Given 1993 IPV 51717 Given 1993 DTaP [facility] [id number] ML 0.50 69349 Given 1993 Hemophilus Influenza B Vaccine 93987 Given 1993 Hep B To Age 16 99214 Refused 12/12/2013 Flu Vaccine Vital Signs Date Vital Result Comment 03/20/2019 3:34pm BP Systolic 116 mmHg BP Diastolic 65 mmHg Height 64 inches 5'4" Weight 197.00 lb BMI (Body Mass Index) 33.8 kg/m2 Heart Rate 88 /min Respiratory Rate 16 /min 02/02/2019 3:37pm BP Systolic 140 mmHg BP Diastolic 70 mmHg Height 64 inches 5'4" Weight 197.00 lb BMI (Body Mass Index) 33.8 kg/m2 Heart Rate 95 /min Respiratory Rate 16 /min Results Test Acquired Date Facility Test Result H/L Range Note Laboratory test 12/25/2018 [facility] Tramadol Negative ng/mL Normal 5 1 finding Phentermine Positive >5000 I <SEE NOTE> ng/mL Abnormal 50 2 Ethyl Glucuronide 12/25/2018 [facility] Ethyl Glucuronide Negative Normal 500 ng/mL PDF SEE IMAGE Urine DRG SCR 12/25/2018 [facility] Amphetamine NEGATIVE Normal 1000 (12PNL-PM) Barbiturate NEGATIVE Normal 200 Benzodiazepine NEGATIVE Normal 200 Buprenorphine NEGATIVE Normal 15 Cannabinoid NEGATIVE Normal 50 Cocaine NEGATIVE Normal 300 Methadone NEGATIVE Normal 300 Opiate NEGATIVE Normal 300 Oxycodone NEGATIVE Normal 300 Phencyclidine NEGATIVE Normal 25 3 Cocaine Panel By 12/25/2018 [facility] Benzoylecgonine Negative Normal 50 4 LC/MS/MS (Cocaine) ng/mL Amphetamine 12/25/2018 [facility] Amphetamine Negative Normal 50 Panel By ng/mL LC/MS/MS Methamphetamine Negative ng/mL Normal 50 Mdma (Ecstasy) Negative ng/mL Normal 50 Mda Negative ng/ml Normal 50 Mdea Negative ng/mL Normal 50 5 Specimen Validity 12/25/2018 [facility] Creatinine, Urine 187 mg/ dL Normal >20 Panel Color YELLOW Normal Yellow pH 5.3 Normal 5.0-8.0 Specific [place] 1.026 Normal 1.001-1.035 6 Opiates Panel 12/25/2018 [facility] 6-Mj (Heroin Negative ng/mL Normal 5 By LC/MS/MS Metabolite) Codeine Negative ng/mL Normal 50 Hydrocodone Negative ng/mL Normal 50 Hydromorphone Negative ng/mL Normal 50 Morphine Negative ng/mL Normal 50 Norhydrocodone Negative ng/mL Normal 50 Noroxycodone Negative ng/mL Normal 50 Noroxymorphone Negative ng/mL Normal 50 Oxycodone Negative ng/mL Normal 50 Oxymorphone Negative ng/mL Normal 50 7 Methadone Panel By 12/25/2018 [facility] Eddp Negative ng/mL Normal 10 LC/MS/MS Methadone Negative ng/mL Normal 10 8 Buprenorphine Panel 12/25/2018 [facility] Buprenorphine Negative ng/mL Normal 5 By LC/MS/MS Naloxone Negative ng/mL Normal 10 Norbuprenorphine Negative ng/mL Normal 5 9 Benzodiazepines 12/25/2018 [facility] 2-Hydroxyethylflurazepam Negative Normal 10 Panel [...] ng/mL Normal 10 10 Barbiturates Panel 12/25/2018 [facility] Butalbital Negative ng/ mL Normal 100 By LC/MS/MS Pentobarbital Negative ng/mL Normal 100 Phenobarbital Negative ng/mL Normal 100 Secobarbital Negative ng/mL Normal 100 11 Antidepressants Panel 12/25/2018 [facility] Amitriptyline Negative Normal 20 By LC/MS/MS ng/mL Clomipramine Negative ng/mL Normal 20 Desipramine Negative ng/mL Normal 20 Doxepin Negative ng/mL Normal 20 Fluoxetine Negative ng/mL Normal 20 Imipramine Negative ng/mL Normal 20 Norclomipramine Negative ng/mL Normal 20 Nordoxepin Negative ng/mL Normal 20 Nortriptyline Negative ng/mL Normal 20 Sertraline Negative ng/mL Normal 20 Trimipramine Negative ng/mL Normal 20 12 Urine Drug 12/25/2018 [facility] NJX-Dkujb-3-Cooh Negative Normal 5 13 [facility] ng/mL Laboratory test 11/15/2018 [facility] Thyroxine @ 0.76 ng/dL ( 0.76 finding [address] [facility] [facility] -1.46 (995)- - ) TSH,Ultrasensitive @ 1.340 mIU/L (0.360-4.170) 25 Hydroxy Vit D @ 30 ng/mL Low (31-100) 14 Lyme Disease 11/15/2018 [facility] Lyme Igm/Igg AB @ NEGATIVE (Neg) 15 Antibodies [address] Igg/Igm (788)- - Lipid 11/15/2018 [facility] Cholesterol @ 190 mg/dL (0-200) [address] (561)- - Triglyceride @ 134 mg/dL (30-200) HDL Cholesterol @ 58 mg/dL (>40) 16 Chol/HDL Ratio 3.3 RATIO 17 LDL Chol (Calc) 105 mg/dL (<130) 18 Hepatitis Profile 11/15/2018 [facility] Hepatitis B S Ag NEGATIVE (Neg ) Acute [address] @ (817)- - Hep. B Core Igm @ NEGATIVE (Neg) Hepatitis A AB Igm @ NEGATIVE (Neg) Hepatitis C AB @ NEGATIVE (Neg) 19 Hemoglobin A1c 11/15/2018 [facility] Hemoglobin A1c @ 5.6 % (4.0-6.0) 20 [address] (524)- - Est Average Glucose 114 mg/dL CMP 11/15/2018 [facility] Sodium 140 mmol/L (136-145) [address] (607)- - Potassium 4.4 mmol/L (3.6-5.2) Chloride 103 [...] NOTE> 21 CBC With Diff 11/15/2018 [facility] WBC 4.5 10*3/uL (4.1-11.0) [address] (607)- - RBC 4.44 10*6/uL (4.00-5.40) HGB 13.3 g/dL (12.0-16.0) HCT 39.3 % (36.0-47.0) MCV 88.5 fL (80.0-95.0) MCH 29.9 pg (27.0-32.0) MCHC 33.8 g/dL (32.0-36.0) RDW 12.6 % (10.5-14.5) PLT 267 10*3/uL (150-450) MPV 8.1 fL (7.1-10.7) Neut % 56.2 % (35.0-75.0) Lymph % 32.5 % (16.0-52.0) Snyder % 10.4 % High (0.0-8.0) Eos % 0.5 % (0.0-5.0) Baso % 0.4 % (0.0-4.0) Neut # 2.5 10*3/uL (1.8-7.7) Lymph # 1.5 10*3/uL (1.2-4.8) Snyder # 0.5 10*3/uL (0.0-0.8) Eos # 0.0 [...] TO INDICATE HCV INFECTION. 20 Performed using [employer] immunoassay. Care must be taken when interpreting [...] dosing. Procedures Date Code Description Status 03/20/2019 69605 Spirometry Completed 03/20/2019 74133 Tympanometry Completed 11/24/2018 03342 EKG Completed Medical Devices Description No Information Available Encounters Type Date Location Provider Dx Diagnosis Office Visit 03/20/2019 [facility] Jadiel Iniguez, J45.909 Unspecified asthma, 3:30p M.D. uncomplicated J30.9 Allergic rhinitis, unspecified L20.9 [...] R09.81 Nasal congestion Office Visit 02/02/2019 4:00p [facility] Vincent Garcia J45.909 Unspecified asthma, N.P. [...] suspected endocrine disorder Office Visit 12/25/2018 3:30p [facility] Vincent Garcia J45.909 Unspecified asthma, N.P. [...] suspected endocrine disorder Office Visit 11/24/2018 3:45p [facility] Vincent Garcia J45.909 Unspecified asthma, N.P. [...] suspected endocrine disorder Office Visit 11/15/2018 11:00a [facility] Vincent Garcia, J45.909 Unspecified asthma, N.P. [...] suspected endocrine disorder Office Visit 11/06/2018 9:30a [facility] Vincent Garcia, J45.909 Unspecified asthma, N.P. [...] pansinusitis H66.92 Otitis media, unspecified, left ear Office Visit 10/09/2018 3:00p [facility] Vincent Garcia, J45.909 Unspecified asthma, N.P. uncomplicated J30.9 Allergic rhinitis, unspecified L20.9 Atopic dermatitis, unspecified K21.9 Gastro-esophageal reflux disease without esophagitis E66.9 Obesity, unspecified E55.9 Vitamin D deficiency, unspecified R73.01 Impaired fasting glucose E78.2 Mixed hyperlipidemia H81.13 Benign paroxysmal vertigo, bilateral F41.9 Anxiety disorder, unspecified F33.9 Major depressive disorder, recurrent, unspecified B35.4 Tinea corporis Office Visit 09/26/2018 4:15p [facility] Jadiel Iniguez J45.909 Unspecified Mehnaz quevedo M.D. uncomplicated J30.9 Allergic rhinitis, unspecified L20.9 Atopic dermatitis, unspecified K21.9 Gastro-esophageal reflux disease without esophagitis E66.9 Obesity, unspecified E55.9 Vitamin D deficiency, unspecified R73.01 Impaired fasting glucose E78.2 Mixed hyperlipidemia H81.13 Benign paroxysmal vertigo, bilateral F41.9 Anxiety disorder, unspecified F33.9 Major depressive disorder, recurrent, unspecified B35.4 Tinea corporis Assessments Date Code Description Provider 03/20/2019 J45.909 Unspecified asthma, uncomplicated HiraJadiel M.D. 03/20/2019 J30.9 Allergic rhinitis, unspecified HiraJadiel M.D. 03/20/2019 L20.9 Atopic dermatitis, unspecified HiraJadiel nichols M.D. 03/20/2019 K21.9 Gastro-esophageal reflux disease without HiraJadiel M.D. esophagitis 03/20/2019 E66.9 Obesity, unspecified HiraJadiel M.D. 03/20/2019 E55.9 Vitamin D deficiency, unspecified Jadiel Iniguez M.D. 03/20/2019 R73.01 Impaired fasting glucose Jadiel Iniguez M.D. 03/20/2019 E78.2 Mixed hyperlipidemia Jadiel Iniguez M.D. 03/20/2019 H81.13 Benign paroxysmal vertigo, bilateral HiraJadiel M.D. 03/20/2019 F41.9 Anxiety disorder, unspecified HiraJadiel M.D. 03/20/2019 F33.9 Major depressive disorder, recurrent, HiraJadiel M.D. unspecified 03/20/2019 J20.9 Acute bronchitis, unspecified HiraJadiel nichols M.D. 03/20/2019 J01.40 Acute pansinusitis, unspecified HiraJadiel hodge M.D. 03/20/2019 H66.93 Otitis media, unspecified, bilateral Jadiel Iniguez M.D. 03/20/2019 R06.02 Shortness of breath Jadiel Iniguez M.D. 03/20/2019 R05 Cough Jadiel Iniguez M.D. 03/20/2019 R09.81 Nasal congestion Jadiel Iniguez [...] N.P. 12/25/2018 R10.84 Generalized abdominal pain Vincent Garcia, N.P. 12/25/2018 Z13.29 Encounter for screening for other suspected Vincent Garcia , N.PJennifer endocrine disorder 11/24/2018 J45.909 Unspecified asthma, uncomplicated [...] 11/24/2018 F33.9 Major depressive disorder, recurrent, Vincent Garcia, N.P. unspecified 11/24/2018 B35.4 Tinea corporis Vincent Garcia, N.P. 11/24/2018 R10.84 Generalized abdominal pain Vincent Garcia N.P. 11/24/2018 Z13.29 Encounter for screening for [...] H66.92 Otitis media, unspecified, left ear Vincent Garcia, N.P. 10/13/2018 J45.909 Unspecified asthma, uncomplicated Vincent Garcia, N.P. 10/13/2018 J30.9 Allergic rhinitis, unspecified Vincent Garcia, N.P. 10/13/2018 L20.9 Atopic dermatitis, unspecified Vincent Garcia, N.P. 10/13/2018 K21.9 Gastro-esophageal reflux disease without Vincent Garcia, N.P. esophagitis 10/13/2018 E66.9 Obesity, unspecified Vincent Garcia, N.P. 10/13/2018 E55.9 Vitamin D deficiency, unspecified Vincent Garcia, N.P. 10/13/2018 R73.01 Impaired fasting glucose Vincent Garcia, N.P. 10/13/2018 E78.2 Mixed hyperlipidemia Vincent Garcia, N.P. 10/13/2018 H81.13 Benign paroxysmal vertigo, bilateral Vincent Garcia, N.P. 10/13/2018 F41.9 Anxiety disorder, unspecified Vincent Garcia, N.P. 10/13/2018 F33.9 Major depressive disorder, recurrent, Vincent Garcia, N.P. unspecified 10/13/2018 B35.4 Tinea corporis Vincent Garcia, N.P. 10/13/2018 R10.84 Generalized abdominal pain Vincent Garcia, N.P. 10/09/2018 J45.909 Unspecified asthma, uncomplicated Vincent Garcia, N.P. 10/09/2018 J30.9 Allergic rhinitis, unspecified Vincent Garcia, N.P. 10/09/2018 L20.9 Atopic dermatitis, unspecified Vincent Garcia, N.P. 10/09/2018 K21.9 Gastro-esophageal reflux disease without Vincent Garcia, N.P. esophagitis 10/09/2018 E66.9 Obesity, unspecified Vincent Garcia, N.P. 10/09/2018 E55.9 Vitamin D deficiency, unspecified Vincent Garcia, N.P. 10/09/2018 R73.01 Impaired fasting glucose Vincent Garcia, N.P. 10/09/2018 E78.2 Mixed hyperlipidemia Vincent Garcia, N.P. 10/09/2018 H81.13 Benign paroxysmal vertigo, bilateral Vincent Garcia, N.P. 10/09/2018 F41.9 Anxiety disorder, unspecified Vincent Garcia, N.P. 10/09/2018 F33.9 Major depressive disorder, recurrent, Vincent Garcia, N.P. unspecified 10/09/2018 B35.4 Tinea corporis Vincent Garcia, N.P. 09/26/2018 J45.909 Unspecified asthma, uncomplicated Jadiel Iniguez M.D. 09/26/2018 J30.9 Allergic rhinitis, unspecified Jadiel Iniguez M.D. 09/26/2018 L20.9 Atopic dermatitis, unspecified Jadiel Iniguez M.D. 09/26/2018 K21.9 Gastro-esophageal reflux disease without HiraJadiel hodge M.D. esophagitis 09/26/2018 E66.9 Obesity, unspecified Jadiel Iniguez M.D. 09/26/2018 E55.9 Vitamin D deficiency, unspecified Jadiel Iniguez M.D. 09/26/2018 R73.01 Impaired fasting glucose Jadiel Iniguez M.D. 09/26/2018 E78.2 Mixed hyperlipidemia Jadiel Iniguez M.D. 09/26/2018 H81.13 Benign paroxysmal vertigo, bilateral Jadiel Iniguez M.D. 09/26/2018 F41.9 Anxiety disorder, unspecified Jadiel Iniguez M.D. 09/26/2018 F33.9 Major depressive disorder, recurrent, Jadiel Iniguez M.D. unspecified 09/26/2018 B35.4 Tinea corporis Jadiel Iniguez M.D. 09/19/2018 J45.909 Unspecified asthma, uncomplicated Jadiel Iniguez M.D. 09/19/2018 J30.9 Allergic rhinitis, unspecified Jadiel Iniguez M.D. 09/19/2018 L20.9 Atopic dermatitis, unspecified Jadiel Iniguez M.D. 09/19/2018 K21.9 Gastro-esophageal reflux disease without Jadiel Iniguez M.D. esophagitis 09/19/2018 E66.9 Obesity, unspecified Jadiel Iniguez M.D. 09/19/2018 E55.9 Vitamin D deficiency, unspecified Jadiel Iniguez M.D. 09/19/2018 R73.01 Impaired fasting glucose Jadiel Iniguez M.D. 09/19/2018 E78.2 Mixed hyperlipidemia Jadiel Iniguez M.D. 09/19/2018 H81.13 Benign paroxysmal vertigo, bilateral Jadiel Iniguez M.D. 09/19/2018 F41.9 Anxiety disorder, unspecified Jadiel Iniguez M.D. 09/19/2018 F33.9 Major depressive disorder, recurrent, Jadiel Iniguez M.D. unspecified Plan of Treatment Future Appointment(s):04/24/2019 3:30 pm - Jadiel Iniguez M.D. at [facility]03/20/2019 - Jadiel Iniguez M.D.J45.909 Unspecified asthma, uncomplicatedComments:MDI / NEBULIZER TX PRN AVOID EXPOSURE TO SMOKING OR PVPXPC42.9 Allergic rhinitis, unspecifiedComments:INCREASE PO FLUID USE ANTIHISTAMINE PRN SECOND HAND SMOKING YEMQTVFVHA10.9 Atopic dermatitis, unspecifiedComments:SKIN CARE INSTRUCTIONS EUCERIN CREAM OR BABY OIL 2-3 APPLICATION PER DAYUSE MOISTURIZING SOAPAVOID PROLONGED WATER EXPOSUREAVOID USING HOT WATER IN NZYZHOJ03.9 Gastro-esophageal reflux disease without esophagitisComments:AVOID CAFFEINE, ETOH AND SPICY FOODSTUMS OR MYLANTA PRN CALL WITH PROBLEMS OR NZKJRPLOE40.9 Obesity, unspecifiedNew Medication: Phentermine HCL 37.5 mg - 1 by mouth every in the morningComments:WT LOSS COUNCELLINGEXERCISEDIET COUNCILLING DUR CHECKED HANDOUT ON DIET GIVEN TO PT WITH VOUXVDWGUEUAEZAZH21.9 Vitamin D deficiency, unspecifiedComments:INCREASE EXPOSURE TO SUNREVIEW OF DIETR73.01 Impaired fasting glucoseComments:F/U HGAICFS QAC AN HS PRNLOW GLUCOSE DIETE78.2 Mixed hyperlipidemiaComments:DIET REVIEWED CONTINUE DIETWT LOSSF/U LAB FBWH81.13 Benign paroxysmal vertigo, bilateralComments:DMUVDDJ24.9 Anxiety disorder, unspecifiedComments:COUNCELLING AND REASSURANCE RELAXATION TECHNIQUESSTRESSORS IN LIFE AVOID ALL ENERGY/HIGH CAFFEINE ZQIMZSS46.9 Major depressive disorder, recurrent, unspecifiedComments: COUNCELLING AND REASSURANCE RELAXATION TECHNIQUESSTRESSORS IN LIFE AVOID ALL ENERGY/HIGH CAFFEINE WNDKTJT22.9 Acute bronchitis, unspecifiedNew Medication: Azithromycin 500 mg - 1 tab by mouth every day x 10 daysComments:INCREASE PO CQQHTGPWPR64.40 Acute pansinusitis, epmfocqyoayJ98.93 Otitis media, unspecified , mfqcgcaxnB31.02 Shortness of amkbkeU36 NscyfB22.81 Nasal congestion Functional Status Description No Information Available Mental Status Description No Information Available Referrals Description No Information Available
[2019-05-08 20:48] VITALS: BP 135/77
[2019-05-08 21:09] LABS: Influenza A Molecular Negative (Negative); Influenza B Molecular Negative (Negative)
== END 2019-05-08 21:12 | disposition home or self-care (01) ==
LOC: UCEAST 20:04
DX: J11.1 Influenza due to unidentified influenza virus with other respiratory manifestations (principal); F41.8 Other specified anxiety disorders; Z88.0 Allergy status to penicillin; Z79.899 Other long term (current) drug therapy
CPT/HCPCS: 99212; G0463